=== PATIENT | male | born 1985 | race Caucasian/White ===

== ENCOUNTER 2017-09-02 01:41 | Inpatient (IN) ==
[2017-09-02] MEDS ORDERED: ONDANSETRON 4 MG/2 ML INJECTION IVP ONE (01:55)
[2017-09-02] MEDS ORDERED: SALINE FLUSH 10ml SYRINGE IVF PRN (01:55)
[2017-09-02] MEDS ORDERED: NS 1,000 ML IV ONE (01:55)
--- NOTE | 2017-09-02 01:59 | Emergency Department Report ---
Overdose HPI - General Stated Complaint: OD Time Seen by Provider: 09/02/17 01:54 [employer]HICLE REPAIRER Source: patient, EMS, RN notes reviewed, old records reviewed Mode of arrival: EMS Limitations: no limitations - History of Present Illness HPI Narrative: 31yo man presented to the ER by EMS following an OD. Pt is well known to the local EMS crews - he has a 17yr h/o heroin abuse; on his last EMS run, pt required 4mg narcan to resuscitate. In the interim, pt had detox'ed from his heroin. Recently, he found out that he is facing a lengthy detention sentence related to his prior drug abuse. So, pt began drinking, then decided, if he was going to [facility]dc anyway, he would start using heroin again. Stated 0.25g of heroin use tonight. OD was unintentional. complaint: accidental overdose Onset (ago): hour(s) Intent: wanted to escape How Overdose Was Discovered: other (Found not breathing) Context: Intentional Overdose: legal problems, drug/ETOH problems Context: Accidental Overdose: wanted to get high Associated symptoms: depression Treatments Prior to Arrival: oxygen, narcan - Related Data Home Medications Medication Instructions Recorded Confirmed BuPROPion XL [Wellbutrin Xl] 300 mg PO DAILY 09/02/17 09/02/17 Mirtazapine [Remeron] 15 mg PO HS 09/02/17 09/02/17 Trazodone [Desyrel] 200 mg PO PRN 09/02/17 Allergies Allergy/AdvReac Type Severity Reaction Status Date / Time No Known Allergies Allergy Verified 09/02/17 02:42 Review of Systems All systems: reviewed and negative except as stated Cardiovascular: Reports: as per HPI. Denies: chest pain, palpitations, dyspnea on exertion, orthopnea, edema, syncope, paroxysmal nocturnal dyspnea Respiratory: Reports: as per HPI. Denies: cough, dyspnea, wheezes, hemoptysis, stridor Neurological: Reports: as per HPI, confusion. Denies: headache, weakness, numbness, paresthesias, abnormal gait, vertigo [facility] Patient Stated Medical History Other Infectious Yes: positive for hep c Depression Yes Substance Use Disorder Yes: was clean since 06/13/2017 Clinic Medical History Heroin overdose (Acute Medical) SIRS (systemic inflammatory response syndrome) (Acute Medical) Medical History Updates: Heroin abuse. Hep C. Depression Physical Exam - Limitations Limitations: no limitations - General General appearance: in no apparent distress, appears intoxicated - Normal Exams: Head:: Normocephalic without trauma Eyes:: Pupils are PERRLA w/ EOMI, No scleral icterus, irritation, or foreign bodies noted ENMT:: No facial trauma, nasal exudates, pharyngeal erythema, or exudates are noted Neck:: Full range of motion, without adenopathy Lymphatic:: No lymphadenopathy Musculoskeletal:: No tenderness, or deformity noted Integumentary:: No rashes, hives, or bruising noted Neurological:: Patient is alert, and oriented Psychiatric:: Patient exhibits, appropriate attention - Chest Chest inspection: Present: normal inspection, symmetric chest wall rise. Absent : tenderness, rash - Respiratory Respiratory exam: Present: crackles (In b/l lower lobes). Absent: normal lung sounds bilaterally, respiratory distress, wheezes, prolonged expiratory phase - Cardiovascular Cardiovascular exam: Present: normal rhythm, tachycardia, normal heart sounds, + S1, +S2. Absent: regular rate, systolic murmur, diastolic murmur, +S3, +S4 Course - Consultations Consultation #1: Hospitalist: Will admit for further eval/stabliziation/treatment. Vital Signs Temperature 98.6 F 09/02/17 01:41 CDT Pulse Rate 114 H 09/02/17 01:41 CDT Respiratory Rate 16 09/02/17 01:41 CDT Blood Pressure 130/81 09/02/17 01:41 CDT Pulse Oximetry 88 L 09/02/17 01:41 CDT Temperature 97.5 F 09/02/17 04:45 Pulse Rate 99 09/02/17 09:45 Respiratory Rate 20 09/02/17 09:45 Blood Pressure 105/50 09/02/17 09:12 Pulse Oximetry 94 09/02/17 09:45 Overdose - MDM Narrative Medical decision making narrative: Markedly intoxicated pt, requiring repeat dose of narcan to maintain SaO2. Recovering heroin addict who decided to begin injecting again after being informed that he would be incarcerated. Contacted hospitalist for admission. - Differential Diagnosis Likely: cocaine intoxication, suicide attempt by multiple drug overdose, poisoning by opiate or related narcotic, drug overdose, accidental drug ingestion - Medical Records Attestation: I reviewed the patient's medical records. - Lab Data Attestation: I reviewed the patient's lab results. Result diagrams: 09/02/17 06:35 09/02/17 06:35 Lab Results 09/02/17 09/02/17 Range/Units 02:53 02:53 WBC 15.3 H (4.5-11.0) T/MM3 RBC 4.97 (4.50-5.90) M/MM3 Hgb 14.6 (13.5-17.5) GM/DL Hct 43.7 (41-53) % MCV 87.9 (80-100) UM3 MCH 29.4 (26-34) UUG MCHC 33.4 (31-37) GM/DL RDW Std Deviation 39.4 (36.9-50.2) FL Plt Count 270 (130-400) T/MM3 MPV 9.8 (9.4-12.4) UM3 Immature Gran % (Auto) Not performed Neut % (Auto) Not performed Lymph % (Auto) Not performed [place] % (Auto) Not performed Eos % (Auto) Not performed Baso % (Auto) Not performed Neut # (Auto) Not performed Lymph # (Auto) Not performed [place] # (Auto) Not performed Eos # (Auto) Not performed Baso # (Auto) Not performed Abs Immat Gran (auto) Not performed Neutrophils % (Manual) 85.0 H (33-66) % Band Neutrophils % 3.0 (0-6) % Lymphocytes % (Manual) 5.0 L (23-45) % Monocytes % (Manual) 6.0 (0-9.0) % Basophils % (Manual) 1.0 (0-2) % Neutrophils # (Manual) 13.0 H (1.8-7.7) T/MM3 Band Neutrophils # 0.5 T/MM3 Lymphocytes # (Manual) 0.8 L (1-4.8) T/MM3 Monocytes # (Manual) 0.9 H (0-0.8) T/MM3 Basophils # (Manual) 0.2 (0-0.2) T/MM3 RBC Morph Comment Normal Turbidity < 20 (0-20) Sodium 142 (134-144) MEQ/L Potassium 4.1 (3.6-5) MEQ/L Chloride 103 (98-107) MEQ/L Carbon Dioxide 30 (22-30) MEQ/L Anion Gap 9 (5-15) MEQ/L BUN 16.0 (9-20) MG/DL Creatinine 1.1 (0.8-1.5) MG/DL GFR Calculation 79 BUN/Creatinine Ratio 15 (6-26) RATIO Glucose 165 H (75-110) MG/DL Calculated Osmolality 278 (261-280) MOSM/KG Calcium 8.7 (8.4-10.2) MG/DL Total Bilirubin 0.20 (0.20-1.30) MG/DL Icterus Index < 2 (0-7) AST 29 (17-59) U/L ALT 39 (21-72) U/L Alkaline Phosphatase 90 (38-126) U/L Creatine Kinase 98 (55-170) U/L Troponin I < 0.012 (0-0.12) ng/ml Total Protein 8.1 (6.3-8.2) G/DL Albumin 4.6 (3.5-5.0) G/DL Globulin 3.5 (2.4-3.6) G/DL Albumin/Globulin Ratio 1.3 (1.1-2.2) RATIO Specimen Hemolysis < 15 (0-25) Salicylates < 1.0 L (2-20) MG/DL Acetaminophen < 10 L (10-30) UG/ML Alcohol, Quantitative <10 (<10) MG/DL - Radiology Data Attestation: I reviewed the patient's radiology results. CXR: No acute CT pathology. - EKG Data EKG #1 EKG attestation: Yes: I reviewed and interpreted this EKG. EKG shows normal: sinus rhythm, axis, intervals, QRS complexes, ST-T waves Rate: tachycardia Disposition Clinical Impression: Drug overdose Qualifiers: Encounter type: initial encounter Injury intent: accidental or unintentional Qualified Code(s): T50.901A - Poisoning by unspecified drugs, medicaments and biological substances, accidental (unintentional), initial encounter Heroin overdose Qualifiers: Encounter type: initial encounter Injury intent: accidental or unintentional Qualified Code(s): T40.1X1A - Poisoning by heroin, accidental (unintentional), initial encounter Disposition: 02 To [facility] Acute Care Condition: Stable - Seen By: physician
[2017-09-02] MEDS ORDERED: NALOXONE 0.4 MG/ML INJECTION IVP ONE (03:13)
[2017-09-02] MEDS ORDERED: HEPARIN 5,000unit/ml 1ml INJECTION SUB-Q SCH (04:39)
[2017-09-02] MEDS ORDERED: PANTOPRAZOLE 40 MG INJECTION IVP ONE (04:39)
[2017-09-02] MEDS ORDERED: NALOXONE 0.4 MG/ML INJECTION IVP PRN (04:39)
[2017-09-02] MEDS ORDERED: ONDANSETRON 4 MG/2 ML INJECTION IVP PRN (04:39)
[2017-09-02] MEDS ORDERED: NS 1,000 ML IV SCH (04:39)
[2017-09-02 04:59] VITALS: BMI 25.0
--- NOTE | 2017-09-02 04:59 | History & Physical Report ---
<Bryan Gutierres Demar - Last Filed: 09/02/17 04:55> History of Present Illness Date: 09/02/17 Chief complaint: altered mental status HPI: This is a 31 y/o male who has a history of drug and alcohol abuse. He had actually been sober for a period of time. The patient is facing legal problems and from what the ED indicates he is soon to be incarcerated for a period of over ?10 years. He decided tonight to step off the wagon and injected an unknown amount of Heroin. The patient was found probably by fiance who activated EMS and they injected narcan and transported to the ED. In the ED he required an additional 0.4mg of narcan and at this time is to be admitted into the ICU for further evaluation of his respiratory status. Review of Systems Review of systems: no headache, no change in vision, no fever chills or sweats, no sore throat or troubles swallowing, no neck pain, no chest pain, no shortness of breath, no cough , no congestion, no abdomen pain, no nausea or vomiting, no MS complaints , no focal neurological complaints. 12 point ROS otherwise negative except for outlined above. [facility] Medical History Updates: Heroin abuse. Hep C. Depression - Social History Smoking status: Current every day smoker Substance use type: heroin, IV drugs Substance last used: just [employer] Alcohol intake: current Last drink: unknown Household members: significant other Medications Allergies Allergy/AdvReac Type Severity Reaction Status Date / Time No Known Allergies Allergy Verified 09/02/17 02:42 Exam Vital Signs: Temperature 98.6 F 09/02/17 01:41 CDT Pulse Rate 100 09/02/17 04:15 Respiratory Rate 15 09/02/17 04:15 Blood Pressure 108/55 09/02/17 04:15 Pulse Oximetry 91 09/02/17 04:15 Telemetry Rhythm: Sinus Rhythm - Constitutional Present: mild distress, well nourished, well developed, average body habitus, disheveled, cooperative - Routine HEENT Exam Head: Present: normocephalic, atraumatic Eye: Present: EOMI, scleral injection, conjunctivae pink ENT: Present: mucous membranes dry - Routine Neck Exam Present: supple, full ROM - Routine Respiratory Exam Present: CTA bilaterally. Absent: wheezes, crackles - Routine Cardiovascular Exam Present: RRR, no murmur. Absent: S3 - Routine Abdominal Exam Present: normoactive bowel sounds, non distended, non tender - Routine Extremities Exam Present: no edema, non tender, full ROM - Routine Back/Spine/Pelvis Exam Back/Spine: Present: full ROM - Routine Skin Exam Present: intact - Routine Neurological Exam Present: oriented X3, CN II-XII intact, altered mental status. Absent: motor deficit - Routine Psychiatric Exam Comments: flat affect, poor eye contact Results - Labs CBC & Chem 7: 09/02/17 02:53 09/02/17 02:53 Labs: reviewed labs, will discuss meaningful labs in assessment and plan - ABG Interpretation Attestation: I reviewed and interpreted this ABG. Assessment and Plan (1) Heroin overdose Current visit: Yes Status: Acute (2) SIRS (systemic inflammatory response syndrome) Current visit: Yes Status: Acute Assessment and Plan: 1. Heroin overdose acute POA: at this time will admit to ICU as he has required 2 doses of narcan so far. no gtt indicated yet. IVF, UDS negative otherwise. He is aware of the consequences. He had been sober for a period of time 2. SIRS acute POA: leukocytosis and tachycardia. IvF and repeat markers in the am 3. chronic alcohol abuse not POA: BAL is negative. hx of abuse. had been sober and drank again recently, to be aware of 4. social: patient with significant social issues. apparently legal. he is soon to be incarcerated. Did not discuss with patient tonight but to be aware of. 5. hyperglycemia acute POA: stress reaction. repeat chemistry in am and if continue elevated consider reassessment 6. DVT ppx; SCD, heparin 7. gastric ppx; PPI DVT Prophylaxis: SCD's, SQ Heparin GI Prophylaxis: Protonix Resuscitation Status: Full Code - Time spent with patient Time with patient PN: 50 minutes Hospital Course Summary Disclaimer: The visit summary below is not to be considered part of the above Progress Note. <Sheldon Pro - Last Filed: 09/02/17 13:44> History of Present Illness Date: 09/02/17 [facility] Patient Stated Medical History Other Infectious Yes: positive for hep c Depression Yes Substance Use Disorder Yes: was clean since 06/13/2017 Clinic Medical History Heroin overdose (Acute Medical) SIRS (systemic inflammatory response syndrome) (Acute Medical) Exam Vital Signs: Temperature 97.5 F 09/02/17 04:45 Pulse Rate 99 09/02/17 09:45 Respiratory Rate 20 09/02/17 09:45 Blood Pressure 105/50 09/02/17 09:12 Pulse Oximetry 94 09/02/17 09:45 Height/Weight/BMI: Height 1.8 m Weight 81.6 kg Body Mass Index 25.0 Results - Labs CBC & Chem 7: 09/02/17 06:35 09/02/17 06:35 Assessment and Plan (1) Heroin overdose Current visit: Yes Status: Acute (2) SIRS (systemic inflammatory response syndrome) Current visit: Yes Status: Acute Assessment and Plan: Have independently interviewed and examined pt. Chart reviewed. Case discussed with CM, CCU nursing, & Fiona from [facility]. Reviewed above chart and concur. CC: Overdose HPI: 31 y/o male with longstanding narcotic dependency and abuse [place] [facility] [place] secondary to overdose. Has been trying to turn his life around. Moved from [place] to [place] to get ways from the bad crowd he was with. Started a job 1 week ago. Continues with [employer] treatments. Recently found he is facing 10 years in care home on drug charges-had relapse and had a few drinks which led to Heroin use. Has not used Heroin in about 4 months. Use the amount he use to take and overdosed. Did not intend to hurt himself. Not wanting to end his life. Admitted to [facility] [place] further evaluation and treatment. PMHx: Heroin abuse, ETOH abuse, Hep C, Depression, Tobacco dependency ALL: NKDA. Meds: none SHx: has GF. Smokes cigarettes. Recently employed. FHx: Brother suddenly at age 23 - possible Sleep apnea vs aneurysm (did have ETOH and morphine in system, but 'not enough to kill him.') ROS: Notes nausea. Appetite varies. Breathing stable. No chest pain. Remainder of 10 point ROS negative Exam GEN: WDWNWM awake alert HEENT: NC/AT PERRLA EOMI MMM Neck: supple, midline, no tracheal deviation Lung: clear bilaterally. No crackles, wheezes or distress CV: tachy, regular AB: soft nt/nd EXT: no C/C/E. Skin: warm and dry Psych: awake alert appropriate. Converses well Neurological: CN II-XII intact. No focal deficits. MS: normal muscle strength and tone Lab: reviewed Assessment Heroin overdose Leukocytosis Tachycardia Hep C Social stressors Hyperglycemia Plan Admission to CCU at [facility] for close monitoring post Heroin overdose. Narcan as needed. IVF for support. NPO until awake and alert. SCD for DVT prevention. Safe supportive environment. Consult with [facility] for evaluation when cognitively clear. [facility] time of discharge from [facility]. Hospital Course Summary Disclaimer: The visit summary below is not to be considered part of the above Progress Note. Hospital Course: 09/02/17 Assessment Heroin overdose Leukocytosis Tachycardia Hep C Social stressors Hyperglycemia Plan Admission to CCU at [facility] [place] close monitoring post Heroin overdose. Narcan as needed. IVF for support. NPO until awake and alert. SCD for DVT prevention. Safe supportive environment. Consult with [facility] for evaluation when cognitively clear. Care to return to [facility] at time of discharge from [facility].
[2017-09-02 06:32] VITALS: TEMP 97.5
--- NOTE | 2017-09-02 08:38 | XRay Report ---
INDICATION: Hypoxia PROCEDURE: CHEST 2-VIEWS UPRIGHT (PA & LAT) Encounter: Initial COMPARISON: None FINDINGS: The lungs are clear without evidence of focal abnormal airspace opacity. There is no pleural effusion or pneumothorax. The heart size, mediastinal contours and pulmonary vascularity are within normal limits. There is no significant skeletal abnormality. IMPRESSION: No acute cardiopulmonary disease. .
[2017-09-02] MEDS ORDERED: NICOTINE 21 MG PATCH TD SCH (09:00)
[2017-09-02 09:58] VITALS: BP 105/50; PULSE 99; RESP 20; O2SAT 94
[2017-09-02] MEDS ORDERED: ACETAMINOPHEN 325 MG TABLET PO ONE (12:12)
--- NOTE | 2017-09-02 13:53 | Discharge Summary ---
Discharge Information Date of admission: 09/02/17 03:36 Anticipated date of discharge: 09/02/17 Attending Physician: Sheldon Pro MD Consults: Inna Borges for state screen - Discharge Diagnosis (1) Heroin overdose Status: Acute (2) SIRS (systemic inflammatory response syndrome) Status: Acute Discharge diagnosis Heroin overdose Associated conditions and complications Leukocytosis Tachycardia Hep C Social stressors Hyperglycemia - Laboratory Labs: Admit Lab 09/02/17 02:53 WBC 15.3 H Hgb 14.6 Hct 43.7 MCV 87.9 MCH 29.4 Plt Count 270 Neutrophils % (Manual) 85.0 H Band Neutrophils % 3.0 Lymphocytes % (Manual) 5.0 L Monocytes % (Manual) 6.0 Basophils % (Manual) 1.0 Admit Lab 09/02/17 02:53 Sodium 142 Potassium 4.1 Chloride 103 Carbon Dioxide 30 Anion Gap 9 BUN 16.0 Creatinine 1.1 GFR Calculation 79 BUN/Creatinine Ratio 15 Glucose 165 H Calculated Osmolality 278 Calcium 8.7 Total Bilirubin 0.20 AST 29 ALT 39 Alkaline Phosphatase 90 Creatine Kinase 98 Troponin I < 0.012 Total Protein 8.1 Albumin 4.6 Globulin 3.5 Albumin/Globulin Ratio 1.3 Admit Lab 09/02/17 09/02/17 02:53 04:21 Salicylates < 1.0 L Urine Opiates Screen Positive Acetaminophen < 10 L Alcohol, Quantitative <10 09/02/17 06:35 09/02/17 06:35 History of Present Illness HPI: This is a 31 y/o male who has a history of drug and alcohol abuse. He had actually been sober for a period of time. The patient is facing legal problems and from what the ED indicates he is soon to be incarcerated for a period of over ?10 years. He decided tonight to step off the wagon and injected an unknown amount of Heroin. The patient was found probably by fiance who activated EMS and they injected narcan and transported to the ED. In the ED he required an additional 0.4mg of narcan and at this time is to be admitted into the ICU for further evaluation of his respiratory status. For complete details for the H&P refer to that document. Objective Vital signs: Temperature 97.5 F 09/02/17 04:45 Pulse Rate 99 09/02/17 09:45 Respiratory Rate 20 09/02/17 09:45 Blood Pressure 105/50 11/05/17 09:12 Pulse Oximetry 94 09/02/17 09:45 Height/Weight/BMI: Height 1.8 m Weight 81.6 kg Body Mass Index 25.0 Hospital Course This is a general summary of the patient's hospital course. For more details refer to the complete medical record. Hospital course: 09/02/17 Assessment Heroin overdose Leukocytosis Tachycardia Hep C Social stressors Hyperglycemia Plan Admission to CCU at [facility] for close monitoring post Heroin overdose. Narcan as needed. IVF for support. NPO until awake and alert. SCD for DVT prevention. Safe supportive environment. Consult with [facility] for evaluation when cognitively clear. [facility] of discharge from [facility] [facility]. [facility] did meet with patient and do not find evidence that he is a treat to himself to others. Recommend patient able to discharge to home and continue outpatient treatments already in place. Medically doing well. Will discharge to home. See orders for details. DVT Prophylaxis: SCD's Discharge Plan - Discharge Disposition Discharge Date: 09/02/17 Disposition: 01 Discharged Home, Self-Care *Condition: Stable *Reason For Visit: heroin overdose - Discharge Packet/Instructions *Diet: regular *Activity: as tolerated *Pain Management/Treatment: Tylenol as needed *Wound Care: N/A Additional Instructions: Continue to follow with [facility] and [facility] as outlined by Fiona Carter *Expected Signs/Symptoms: Improvement of functional status *Notify Physician if: Temp >100.4 *During Business Hours Contact: [facility] *After Business Hours Contact: Call [facility] and have you care provider contacted. *Pending Lab/Results: No Pending Lab - Referrals/Follow Up *Referrals[facility]Follow Up: [facility] [Non-Staff] - (Continue with [facility] for health care. ) - Patient Handouts - Dismissal Complete Discharge Instructions are:: Complete Attestation Narriative - Attestation Attestation Narrative: 09/02/17 13:56 I have independently interviewed and examined patient prior to discharge. See H& P from today for details. Medically stable for discharge to home.
[2017-09-03] MEDS ORDERED: NICOTINE PATCH REMOVAL TD SCH (09:00)
== END 2017-09-02 14:15 | disposition home or self-care (01) | DRG 918 ==
LOC: ED 01:41 → CCU 03:36
PROVIDERS: ADMIT Emergency Medicine; ATTEND Hospitalist

== ENCOUNTER 2017-09-16 08:46 | Inpatient (IN) ==
[2017-09-16] MEDS ORDERED: NS 1,000 ML IV ONE ×3 (08:57→13:20)
[2017-09-16] MEDS ORDERED: ONDANSETRON 4 MG/2 ML INJECTION IVP ONE (08:57)
[2017-09-16] MEDS ORDERED: NALOXONE 0.4 MG/ML INJECTION IVP ONE (08:57)
--- NOTE | 2017-09-16 09:15 | Emergency Department Report ---
Overdose HPI - General Stated Complaint: right arm not working, says cant hear Time Seen by Provider: 09/16/17 08:56 Source: patient, family Mode of arrival: ambulatory Limitations: altered mental status - History of Present Illness HPI Narrative: 31yo man presented to the ER for evaluation of right arm weakness. Pts staci brought him to the ER after getting off work and driving home from her 12hr shift in [place]. When she spoke with him at 2130 last night, he was fine. When she came home from work, he was altered, c/o right arm pain/weakness, and right arm coldness. Pt has a long h/o heroin abuse. When asked about it directly, pt admits to having shot up last night. complaint: accidental overdose Onset (ago): hour(s) Intent: wanted to escape How Overdose Was Discovered: other (Fiance) Context: Intentional Overdose: drug/ETOH problems Context: Accidental Overdose: wanted to get high Associated symptoms: other (Still altered) Treatments Prior to Arrival: none - Related Data Home Medications Medication Instructions Recorded Confirmed BuPROPion XL [Wellbutrin Xl] 300 mg PO DAILY 09/02/17 09/16/17 Mirtazapine [Remeron] 15 mg PO HS 09/02/17 09/16/17 Trazodone [Desyrel] 200 mg PO HS PRN 09/02/17 09/16/17 Allergies Allergy/AdvReac Type Severity Reaction Status Date / Time No Known Allergies Allergy Verified 09/16/17 09:13 Review of Systems All systems: reviewed and negative except as stated Musculoskeletal: Reports: as per HPI. Denies: back pain, joint swelling, arthralgia, myalgia [facility] Patient Stated Medical History Other Infectious Yes: positive for hep c Depression Yes Substance Use Disorder Yes: [facility] Medical History Heroin overdose (Acute Medical) SIRS (systemic inflammatory response syndrome) (Acute Medical) Drug overdose (Acute Medical) Aspiration pneumonia (Acute Medical) Sepsis (Acute Medical) Medical History Updates: Heroin abuse. Hep C. Depression - Social History Smoking status: Current every day smoker Physical Exam - Limitations Limitations: altered mental status - General General appearance: lethargic - Normal Exams: Head:: Normocephalic without trauma ENMT:: No facial trauma, nasal exudates, pharyngeal erythema, or exudates are noted Neck:: Full range of motion, without adenopathy Lymphatic:: No lymphadenopathy - Eye Eye exam: Present: PERRL, EOMI, miosis. Absent: normal appearance, scleral icterus, nystagmus - Chest Chest inspection: Present: normal inspection, symmetric chest wall rise. Absent : tenderness, rash - Respiratory Respiratory exam: Present: wheezes, crackles. Absent: normal lung sounds bilaterally, respiratory distress, stridor, prolonged expiratory phase - Cardiovascular Cardiovascular exam: Present: regular rate, normal rhythm, normal heart sounds, +S1, +S2. Absent: systolic murmur, diastolic murmur, +S3, +S4 - Abdominal Exam Abdominal exam: Present: soft, normal bowel sounds. Absent: distention, tenderness, guarding, rebound, rigidity, psoas sign, obturator sign, heel tap sign, Burgess's sign, Rovsing's sign, tenderness at McBurney's Point, hernia - Extremities Exam Extremities exam: Present: full ROM, normal capillary refill. Absent: normal inspection, tenderness, pedal edema - Expanded Upper Extremity Exam bilateral Forearm/Wrist exam: Present: full ROM, erythema (Over left forearm; cellulitis/ edema surrounding injection site). Absent: normal inspection, tenderness, swelling, abrasion, laceration, ecchymosis, deformity, crepitus, dislocation, tenderness over anatomical snuff box, pain with axial thumb loading Vascular exam: Normal: capillary refill (Cold extremities b/l) Course - Consultations Consultation #1: Hospitalist: Time: 11:14 Vital Signs Temperature 95.7 F L 09/16/17 08:50 Pulse Rate 107 H 09/16/17 08:50 Respiratory Rate 20 09/16/17 08:50 Blood Pressure 102/61 09/16/17 08:50 Pulse Oximetry 83 L 09/16/17 08:50 Temperature 95.7 F L 09/16/17 08:50 Pulse Rate 104 H 09/16/17 12:19 Respiratory Rate 21 09/16/17 12:19 Blood Pressure 101/59 09/16/17 12:19 Pulse Oximetry 92 09/16/17 12:19 Overdose - MDM Narrative Medical decision making narrative: 31yo man with recurrent, accidental (presumably) heroin overdose. Pt has aspirated and has cellulitis and sepsis. Blood cultures pending. Rocephin and levaquin given in the ER. Hospitalist has accepted pt for txfr to the CCU. Will need social work coordination for drug rehab on discharge. Finila voiced understanding of dx, prognosis, tx, and f/u need. - Differential Diagnosis Likely: cocaine intoxication, poisoning by opiate or related narcotic, drug overdose, accidental drug ingestion - Medical Records Attestation: I reviewed the patient's medical records. - Lab Data Attestation: I reviewed the patient's lab results. Result diagrams: 09/16/17 09:23 09/16/17 09:23 Lab Results 09/16/17 09/16/17 09/16/17 Range/Units 09:23 09: 09:23 WBC 8.0 (4.5-11.0) T/MM3 RBC 5.99 H (4.50-5.90) M/MM3 Hgb 17.8 H (13.5-17.5) GM/DL Hct 51.9 (41-53) % MCV 86.6 (80-100) UM3 MCH 29.7 (26-34) UUG MCHC 34.3 (31-37) GM/DL RDW Std Deviation 40.5 (36.9-50.2) FL Plt Count 285 (130-400) T/MM3 MPV 10.0 (9.4-12.4) UM3 Immature Gran % (Auto) 0.4 (0.0-0.5) % Neut % (Auto) 78.7 H (33-66) % Lymph % (Auto) 9.7 L (23-45) % [place] % (Auto) 11.1 H (0-9.0) % Eos % (Auto) 0.0 (0-4) % Baso % (Auto) 0.1 (0-2) % Neut # (Auto) 6.3 (1.8-7.7) T/MM3 Lymph # (Auto) 0.8 L (1-4.8) T/MM3 [place] # (Auto) 0.9 H (0-0.8) T/MM3 Eos # (Auto) 0.0 (0-0.5) T/MM3 Baso # (Auto) 0.0 (0-0.2) T/MM3 Abs Immat Gran (auto) 0.03 (0.00-0.03) T/MM3 Turbidity < 20 (0-20) Sodium 145 H (134-144) MEQ/L Potassium 5.4 H (3.6-5) MEQ/L Chloride 105 (98-107) MEQ/L Carbon Dioxide 20 L (22-30) MEQ/L Anion Gap 20 H (5-15) MEQ/L BUN 27.0 H (9-20) MG/DL Creatinine 1.7 H (0.8-1.5) MG/DL GFR Calculation 48 BUN/Creatinine Ratio 16 (6-26) RATIO Glucose 139 H (75-110) MG/DL Calculated Osmolality 286 H (261-280) MOSM/KG Calcium 10.2 (8.4-10.2) MG/DL Total Bilirubin 0.50 (0.20-1.30) MG/DL Icterus Index < 2 (0-7) AST 331 H (17-59) U/L ALT 99 H (21-72) U/L Alkaline Phosphatase 117 (38-126) U/L Total Protein 7.5 (6.3-8.2) G/DL Albumin 4.2 (3.5-5.0) G/DL Globulin 3.3 (2.4-3.6) G/DL Albumin/Globulin Ratio 1.3 (1.1-2.2) RATIO Lipase 65 (23-300) U/L Plasma Lactate 5.5 H* (0.6-2.2) MMOL/L Procalcitonin 14.24 H* NG/ML Specimen Hemolysis 68 H (0-25) Ur Collection Type Urine Color (YELLOW) Urine Clarity Urine pH (5.0-8.0) Ur Specific [place] (1.015-1.025) Urine Protein (NEGATIVE) Urine Glucose (UA) (NEGATIVE) Urine Ketones (NEGATIVE) Urine Occult Blood (NEGATIVE) Urine Nitrate (NEGATIVE) Urine Bilirubin (NEGATIVE) Urine Urobilinogen (NORMAL) EU/DL Ur Leukocyte Esterase (NEGATIVE) Urine RBC (0-3) /HPF Urine WBC (0-5) /HPF Ur Squamous Epith Cells Amorphous Sediment Urine Bacteria (NEGATIVE) Granular Casts Ur Culture Indicated? Salicylates < 1.0 L (2-20) MG/DL Urine Opiates Screen ng/mL Ur Oxycodone Screen ng/mL Urine Methadone Screen ng/mL Ur Propoxyphene Screen ng/mL Acetaminophen < 10 L (10-30) UG/ML Ur Barbiturates Screen ng/mL U Tricyclic Antidepress ng/mL Ur Phencyclidine Scrn ng/mL Ur Amphetamines Screen ng/mL U Methamphetamines Scrn ng/mL U Benzodiazepines Scrn ng/mL Urine Cocaine Screen ng/mL U Cannabinoids Screen ng/mL Ur Drug Screen Confirm Alcohol, Quantitative <10 (<10) MG/DL 09/16/17 09/16/17 09/16/17 Range/Units 09:53 09:53 09:53 WBC (4.5-11.0) T/MM3 RBC (4.50-5.90) M/MM3 Hgb (13.5-17.5) GM/DL Hct (41-53) % MCV (80-100) UM3 MCH (26-34) UUG MCHC (31-37) GM/DL RDW Std Deviation (36.9-50.2) FL Plt Count (130-400) T/MM3 MPV (9.4-12.4) UM3 Immature Gran % (Auto) (0.0-0.5) % Neut % (Auto) (33-66) % Lymph % (Auto) (23-45) % [place] % (Auto) (0-9.0) % Eos % (Auto) (0-4) % Baso % (Auto) (0-2) % Neut # (Auto) (1.8-7.7) T/MM3 Lymph # (Auto) (1-4.8) T/MM3 [place] # (Auto) (0-0.8) T/MM3 Eos # (Auto) (0-0.5) T/MM3 Baso # (Auto) (0-0.2) T/MM3 Abs Immat Gran (auto) (0.00-0.03) T/MM3 Turbidity (0-20) Sodium (134-144) MEQ/L Potassium (3.6-5) MEQ/L Chloride (98-107) MEQ/L Carbon Dioxide (22-30) MEQ/L Anion Gap (5-15) MEQ/L BUN (9-20) MG/DL Creatinine (0.8-1.5) MG/DL GFR Calculation BUN/Creatinine Ratio (6-26) RATIO Glucose (75-110) MG/DL Calculated Osmolality (261-280) MOSM/KG Calcium (8.4-10.2) MG/DL Total Bilirubin (0.20-1.30) MG/DL Icterus Index (0-7) AST (17-59) U/L ALT (21-72) U/L Alkaline Phosphatase (38-126) U/L Total Protein (6.3-8.2) G/DL Albumin (3.5-5.0) G/DL Globulin (2.4-3.6) G/DL Albumin/Globulin Ratio (1.1-2.2) RATIO Lipase (23-300) U/L Plasma Lactate (0.6-2.2) MMOL/L Procalcitonin NG/ML Specimen Hemolysis (0-25) Ur Collection Type Urine, clean catch Urine Color Natalie (YELLOW) Urine Clarity Cloudy Urine pH 5.0 (5.0-8.0) Ur Specific [place] >=1.030 H (1.015-1.025) Urine Protein 1+ A (NEGATIVE) Urine Glucose (UA) 2+ A (NEGATIVE) Urine Ketones Negative (NEGATIVE) Urine Occult Blood 3+ A (NEGATIVE) Urine Nitrate Negative (NEGATIVE) Urine Bilirubin Negative (NEGATIVE) Urine Urobilinogen 0.2 (NORMAL) EU/DL Ur Leukocyte Esterase Negative (NEGATIVE) Urine RBC 1-3 (0-3) /HPF Urine WBC 1-3 (0-5) /HPF Ur Squamous Epith Cells 0-5 Amorphous Sediment Many Urine Bacteria None seen (NEGATIVE) Granular Casts 3-5 Ur Culture Indicated? Cult not indicated Salicylates (2-20) MG/DL Urine Opiates Screen Positive ng/mL Ur Oxycodone Screen Negative ng/mL Urine Methadone Screen Negative ng/mL Ur Propoxyphene Screen Negative ng/mL Acetaminophen (10-30) UG/ML Ur Barbiturates Screen Negative ng/mL U Tricyclic Antidepress Negative ng/mL Ur Phencyclidine Scrn Negative ng/mL Ur Amphetamines Screen Negative ng/mL U Methamphetamines Scrn Negative ng/mL U Benzodiazepines Scrn Negative ng/mL Urine Cocaine Screen Negative ng/mL U Cannabinoids Screen Negative ng/mL Ur Drug Screen Confirm Sent out Alcohol, Quantitative (<10) MG/DL - Radiology Data Attestation: I reviewed the patient's radiology results. CXR: Findings: Severe consolidation of almost the entire right lung. Left lung is clear. No pleural effusion or pneumothorax. Heart size and mediastinal contours are normal. Impression: Severe right lung consolidation could represent massive aspiration or pneumonia. B/l duplex US: IMPRESSION: Normal bilateral upper extremity duplex arterial ultrasound. - EKG Data EKG #1 EKG attestation: Yes: I reviewed and interpreted this EKG. EKG shows normal: sinus rhythm, axis, QRS complexes Rate: tachycardia Interpretation: nonspecific ST-T wave changes Disposition Clinical Impression: Heroin overdose Qualifiers: Encounter type: initial encounter Injury intent: accidental or unintentional Qualified Code(s): T40.1X1A - Poisoning by heroin, accidental (unintentional), initial encounter Aspiration pneumonia Qualifiers: Aspiration pneumonia type: due to vomit Laterality: right Lung location: unspecified part of lung Qualified Code(s): J69.0 - Pneumonitis due to inhalation of food and vomit Sepsis Qualifiers: Sepsis type: sepsis due to unspecified organism Qualified Code(s): A41.9 - Sepsis, unspecified organism Disposition: Discharged Home, Self-Care Condition: Stable Time of Disposition: 11:32 - Seen By: physician
[2017-09-16] MEDS ORDERED: NALOXONE 0.4 MG/ML INJECTION IM ONE (09:17)
[2017-09-16] MEDS ORDERED: ONDANSETRON ODT 4 MG TABLET PO ONE (09:38)
[2017-09-16] MEDS ORDERED: CEFTRIAXONE 1 G INJECTION IM ONE (10:07)
[2017-09-16] MEDS ORDERED: LEVOFLOXACIN PB 750 MG/150 ML BAG IV SCH (10:15)
--- NOTE | 2017-09-16 11:00 | XRay Report ---
Indication: OD PROCEDURE: XR chest 1V: Encounter: Initial Comparison: September 02, 2017 Findings: Severe consolidation of almost the entire right lung. Left lung is clear. No pleural effusion or pneumothorax. Heart size and mediastinal contours are normal. Impression: Severe right lung consolidation could represent massive aspiration or pneumonia. .
[2017-09-16] MEDS: SALINE FLUSH 10ml SYRINGE IVF PRN (11:03)
[2017-09-16 12:47] VITALS: BMI 25.6
[2017-09-16] MEDS: NS 1,000 ML IV SCH ×2 (13:49→20:24)
--- NOTE | 2017-09-16 15:11 | History & Physical Report ---
History of Present Illness Date: 09/16/17 HPI: is a 31 y.o. male with PMH of substance abuse, Hep C? who presented after being found on the ground and minimally responsive by his girlfriend. She reports he was doing well last night but this morning he was lying on the ground and disoriented. Pt had a similar episode a couple of weeks ago which was related to heroin overdose. Pt is currently alert and oriented and reports he took heroin again. Denies use of any other substance. Pt reports he injected it through his left arm. Denies any n/v/d, f/c, cp or sob. Reports he has limited mobility in his right arm but has full feeling. He thinks he may have fell on it. Review of Systems All systems PM: 10-point ROS was reviewed, no additional remarkable complaints except PFSH Patient Stated Medical History Other Infectious Yes: positive for hep c Depression Yes Substance Use Disorder Yes: [facility] Medical History Heroin overdose (Acute Medical) SIRS (systemic inflammatory response syndrome) (Acute Medical) Drug overdose (Acute Medical) Aspiration pneumonia (Acute Medical) Sepsis (Acute Medical) Medical History Updates: Heroin abuse. Hep C. Depression - Social History Smoking status: Current every day smoker Medications Home Medications Medication Instructions Recorded Confirmed Type BuPROPion XL [Wellbutrin Xl] 300 mg PO DAILY 09/02/17 09/16/17 History Mirtazapine [Remeron] 15 mg PO HS 09/02/17 09/16/17 History Trazodone [Desyrel] 200 mg PO HS PRN 09/02/17 09/16/17 History Allergies Allergy/AdvReac Type Severity Reaction Status Date / Time No Known Allergies Allergy Verified 09/16/17 09:13 Exam Vital Signs: Temperature 98.5 F 09/16/17 12:45 Pulse Rate 101 H 09/16/17 13:38 Respiratory Rate 20 09/16/17 13:38 Blood Pressure 100/64 09/16/17 13:30 Pulse Oximetry 96 09/16/17 13:38 Height/Weight/BMI: Height 5 ft 10 in Weight 81 kg Body Mass Index 25.6 - Constitutional Present: no acute distress, disheveled, cooperative, somnolent - Routine HEENT Exam Head: Present: normocephalic, atraumatic Eye: Present: EOMI ENT: Present: mucous membranes dry - Routine Neck Exam Present: supple, full ROM - Routine Respiratory Exam Present: CTA bilaterally. Absent: dyspnea - Routine Cardiovascular Exam Present: RRR, no murmur - Routine Abdominal Exam Present: soft, non tender. Absent: distended, rebound, guarding - Routine Extremities Exam Present: no edema. Absent: cyanosis, clubbing - Routine Skin Exam Present: intact, dry. Absent: cyanosis Comments: slight erythema around injection site on left forearm Results - Labs CBC & Chem 7: 09/16/17 09:23 09/16/17 16:24 Assessment and Plan Assessment and Plan: Severe Sepsis -PNA vs. Cellulitis at injection site -LA 5.5 at presentation, will recheck, procal 14 -Hypotensive but responding to fluids -Will do broad coverage-->Vanc + Zosyn -IV fluids, blood cx's, sputum cx's Mild Hypothermia -Likely 2/2 heroin OD -95F on presentation -Will do passive re-warming efforts Aspiration PNA -CXR shows extensive infiltrates on entirety of right lung -Sputum cx's, will do broad abx coverage, O2 as needed Transaminitis -AST:ALT ratio 3:1, EtOH screen negative but possible abuse? -Concern for Rhabdo with AST elevation as well as UA showing blood but not many RBCs, check CPK HAGMA -Likely LA and BAILEY but less likely but possible alcohol ingestion -Order serum osm to calculate osm gap -Treat underlying pathology BAILEY -Infection vs. Pre-renal with dehydration vs. rhabdo -IV fluids, FeNa, Renal US -UA shows some protein/glucose-->possible CKD component, also blood+ but no rbcs -->possible rhabdo Heroin OD -Tylenol/salcylate screen neg, UDS positive for opiates -Will test for HIV/Hep---some report of hep C hx? Right Shoulder limited mobility -mild pain, will order plain films -Consulted ortho -Can move arm and has sensation, just limited mobility when trying to lift arm -Possibly has rotator cuff tear from fall? DVT Ppx -SCD Hospital Course Summary Disclaimer: The visit summary below is not to be considered part of the above Progress Note. Hospital Course: 09/16/17 15:41 Pt came in very sick with Heroin OD and multiple organ dysfunction and severe sepsis. Started broad spectrum abx, aggressive rehydration, work up for infection and other possible etiologies. Will monitor closely.
[2017-09-16] MEDS ORDERED: VANCOMYCIN - PHARMACY CONSULT MC ONE (15:17)
--- NOTE | 2017-09-16 16:49 | Orthopedic Consult Note ---
Orthopedic Consultation HPI - Consultation Info Consult Date: 09/16/17 Attending Physician: Leo Benson MD Consult Reason: joint pain (Right shoulder) - History of Present Illness 31 yo male presented to [facility] after suspected opiate overdose. 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 His girlfriend is reporting much of the history. Was incarecerated from Nov-March 2017 and relapsed upon release. This is his third OD since release. His girlfriend thinks a recent court case has caused his most recent relapse 2 weeks ago and then again last night. She last spoke to him aroung 9:30 pm last evening. She arrived home this morning after she got off work to find him disoriented and lethargic sitting on the couch. Patient notes he used last night and doesn't remember much else. He thinks he fell and laid on the ground for most of the night. I was consulted regarding right shoulder pain. Pain is diffusely located. Denies neck pain. Says he thinks his hand feels a bit numb. Reportedly, his bilateral upper extremities were cool in the ED and US was ordered and found to be negative. Pain is worse with motion. There was concern for dislocation but only an AP film was obtained. It appeared grossly normal, but additional views were ordered to confirm. No fracture or dislocation was identified on the new films. No prior shoulder pain. States he is ambidextrous. Feels better not to move his shoulder. Has been afebrile. Review of Systems - Constitutional Constitutional: Present: daytime sleepiness, lethargy. Absent: anorexia, chills - EENT Eyes: Absent: change in vision, loss of vision Ears, nose, mouth, throat: Present: lightheadedness, decreased hearing. Absent : head injury, apnea - Cardiovascular Cardiovascular: Absent: chest pain, palpitations Vascular: Absent: atrophy, pallor of an extermity, pedal edema - Respiratory Respiratory: Present: cough, chest congestion. Absent: dyspnea, wheezing - Gastrointestinal Gastrointestinal: Absent: abdominal pain, nausea, vomiting - Musculoskeletal Musculoskeletal: Present: joint swelling, limited range of motion, tenderness. Absent: deformity, neck pain - Integumentary/Breasts Integumentary: Present: erythema - Neurological Neurological: Present: numbness, weakness - Psychiatric Psychiatric: Present: anxiety, depression - Endocrine Endocrine: Absent: cold intolerance, excessive sweating [facility] Medical History Heroin overdose (Acute Medical) SIRS (systemic inflammatory response syndrome) (Acute Medical) Drug overdose (Acute Medical) Aspiration pneumonia (Acute Medical) Sepsis (Acute Medical) Medical History Updates: Heroin abuse. Hep C. Depression - Social History Smoking status: Current every day smoker Substance use type: marijuana, IV drugs, methamphetamine Substance last used: hours (ago) Household members: significant other Medications Home Medications Medication Instructions Recorded Confirmed Type BuPROPion XL [Wellbutrin Xl] 300 mg PO DAILY 09/02/17 09/16/17 History Mirtazapine [Remeron] 15 mg PO HS 09/02/17 09/16/17 History Trazodone [Desyrel] 200 mg PO HS PRN 09/02/17 09/16/17 History Allergies Allergy/AdvReac Type Severity Reaction Status Date / Time No Known Allergies Allergy Verified 09/16/17 09:13 Orthopedic Exam Vital signs: Temperature 98.5 F 09/16/17 12:45 Pulse Rate 101 H 09/16/17 13:38 Respiratory Rate 20 09/16/17 13:38 Blood Pressure 100/64 09/16/17 13:30 Pulse Oximetry 96 09/16/17 13:38 - Constitutional General Appearance: Present: disheveled, orientated x3, mild distress, looks stated age, well developed - Respiratory Exam Present: non-labored - Cardiovascular Exam Present: Regular Rate/Rhythm, pedal pulses intact Capillary Refill: < 2-3 Seconds - Abdominal Exam Present: soft. Absent: tenderness, distended - Extremities Exam Present: tenderness (right shoulder). Absent: no edema - Detailed Upper Extremity Exam Comments: Patient was sat up to evaluate symmetry. Mild swelling noted about the right shoulder and sat with a protracted scapula. Upon relaxation, appearance normalized. Small bruise over the anterior shoulder that appears old. Bony prominences of the clavicle and shoulder palpated without evidence of crepitus, deformity, or pain. Tender over deltoid and periscapular musculature. ROM limited because of pain. Upon relaxing, general PROM was normal and without mechanical block or crepitus. Able to fire deltoid, biceps, flex/extend elbow, extend the thumb, ab/adduct fingers, and oppose thumb to the small finger. RC strength grossly normal with mild discomfort with ER and abduction. Radial pulse strong. Normal, brisk capillary refill. Contralateral extremity examined and normal. No neck tenderness, normal motion. - Labs Result Diagrams: 09/16/17 09:23 09/16/17 16:24 Abnormal lab results 09/16/17 Range/Units 16:00 ABG pH 7.310 L (7.350-7.450) ABG Base Excess -4.0 L (-2.0-2.0) MMOL/L - Diagnostic results Shoulder x-ray: image reviewed (No evidence of fracture or dislocation, joint space well maintained.) Impression and Recommendation (1) Acute pain of right shoulder Current visit: Yes Status: Acute Discussed the findings with the patient and his girlfriend. No evidence of acute fracture or dislocation. Likely laid on the right side while he was unconscious. When relaxing for the exam, he felt better. He is relieved to know there is no fracture. Recommend PT/OT for ROM, scapular stabilization, and eventual strengthening. May benefit from some NSAIDs when able medically. Would not recommend sling. Other consideration would be sepsis, but normal WBC , no warmth, and rapid onset after fall/laying on shoulder make unlikely. Ice prn. If pain persists after discharge, could consider outpatient MRI if therapy and time do not improve. Thank you for allowing me to participate in the care of this patient. (2) Aspiration pneumonia Current visit: Yes Qualifiers: Aspiration pneumonia type: due to vomit Laterality: right Lung location: unspecified part of lung Qualified Code(s): J69.0 - Pneumonitis due to inhalation of food and vomit Status: Acute (3) Drug overdose Current visit: No Qualifiers: Encounter type: initial encounter Injury intent: accidental or unintentional Qualified Code(s): T50.901A - Poisoning by unspecified drugs, medicaments and biological substances, accidental (unintentional), initial encounter Status: Acute Hospital Course Summary Disclaimer: The visit summary below is not to be considered part of the above Progress Note. Hospital Course: 09/16/17 15:41 Pt came in very sick with Heroin OD and multiple organ dysfunction and severe sepsis. Started broad spectrum abx, aggressive rehydration, work up for infection and other possible etiologies. Will monitor closely.
[2017-09-16] MEDS: PIPERACILLIN/TAZOBACTAM 3.375 GM in NS 100 ML IV SCH ×2 (17:27→21:30)
[2017-09-16] MEDS: NICOTINE 14 MG PATCH TD PRN (18:17)
[2017-09-16] MEDS: ACETAMINOPHEN 500 MG TABLET PO PRN (21:29)
[2017-09-17] MEDS: CALCIUM CARBONATE Chewable 500mg TABLET PO PRN ×3 (01:01→17:05)
[2017-09-17] MEDS: PIPERACILLIN/TAZOBACTAM 3.375 GM in NS 100 ML IV SCH ×4 (03:00→20:44)
[2017-09-17] MEDS: NS 1,000 ML IV SCH ×3 (03:19→21:42)
[2017-09-17] MEDS: SALINE FLUSH 10ml SYRINGE IVF PRN ×2 (03:46→19:36)
[2017-09-17] MEDS ORDERED: NICOTINE PATCH REMOVAL TD PRN (05:53)
--- NOTE | 2017-09-17 07:37 | Ultrasound Report ---
Indication: BAILEY PROCEDURE: US renal BI: Encounter: Initial Comparison: None Technique: Grayscale and color Doppler sonographic imaging of both kidneys was performed. FINDINGS: Both kidneys are present with normal cortical thickness and echogenicity. No evidence for collecting system dilatation, contour deforming mass, nephrolithiasis, or abnormal perinephric fluid collection. The right kidney measures 11.8 cm in length, and the left kidney measures 12 cm in length. IMPRESSION: Normal renal sonogram. .
[2017-09-17] MEDS: POTASSIUM ACID PHOSPHATE 500 MG TABLET PO SCH ×3 (08:27→18:02)
--- NOTE | 2017-09-17 08:30 | XRay Report ---
EXAM: XR chest 1V 0556 hours COMPARISON: 09/16/2017. 03/17/2017. HISTORY: f/u aspiration pneumonia . FINDINGS: The cardiomediastinal silhouette is within limits of normal. The pulmonary vascularity appears unremarkable. There is persistent alveolar opacification throughout the right lung. Left lung is clear. There is some sparing of the periphery. This is similar to mildly improved compared to the prior exam. There is no evidence for pleural effusion. There is no evidence for a pneumothorax. No osseous abnormalities are identified. IMPRESSION: Persistent, but mildly improved consolidation throughout the right lung. This again may be related to aspiration. LOCATION OF DICTATION: [facility] [place]
--- NOTE | 2017-09-17 08:47 | XRay Report ---
EXAM: XR shoulder RT 1V 1419 hours COMPARISON: None available. HISTORY: possible shoulder dislocation . FINDINGS: Single view of the right shoulder was obtained. There is no evidence for acute fracture, subluxation, or dislocation. No osseous abnormality is identified. There is alveolar opacification throughout the right lung with some sparing of the right lung apex. The right ribs, scapula, clavicle, proximal humerus are intact. IMPRESSION: 1. No evidence for fracture or dislocation. 2. Diffuse alveolar opacification throughout the right lung with some sparing of the right lung apex which may be related to an aspiration pneumonia. LOCATION OF DICTATION: [facility] [place] .
--- NOTE | 2017-09-17 08:49 | XRay Report ---
EXAM: XR shoulder RT 2-3 views 1629 hours. COMPARISON: 05/16/2017 at 1419 hours. HISTORY: Right shoulder pain . FINDINGS: There is no evidence for acute fracture, subluxation, or dislocation. No osseous abnormalities identified. Alveolar opacification is seen throughout the right lung with some sparing of the periphery. IMPRESSION: 1. There is no evidence for acute fracture, subluxation, or dislocation. 2. Alveolar opacification throughout the right lung which may be related to aspiration pneumonia and is similar to mildly improved compared to the prior exam. LOCATION OF DICTATION: [facility] [place] .
--- NOTE | 2017-09-17 10:09 | Progress Note ---
- Date 09/17/17 Subjective: Pt is alert and oriented but feels anxious. Pt denies any cp, n/v/d, f/c, or sob. Pt is hungry and would like to eat. Objective Vital signs: Temperature 98.7 F 09/17/17 09:00 Pulse Rate 115 H 09/17/17 09:00 Respiratory Rate 25 H 09/17/17 09:00 Blood Pressure 138/75 09/17/17 09:00 Pulse Oximetry 95 09/17/17 09:00 Rhythm: Sinus Tachycardia Height/Weight/BMI: Weight 80 kg - Constitutional Present: mild distress - Routine HEENT Exam Head: Present: normocephalic, atraumatic Eye: Present: EOMI - Routine Respiratory Exam Present: CTA bilaterally. Absent: dyspnea - Routine Cardiovascular Exam Present: RRR, no murmur - Routine Abdominal Exam Present: soft, non distended, non tender - Routine Extremities Exam Present: no edema. Absent: cyanosis, clubbing - Routine Musculoskeletal Exam Musculoskeletal: Present: joint swelling (right shoulder) - Routine Skin Exam Present: intact, dry. Absent: cyanosis - Routine Neurological Exam Present: alert, oriented X3 Results - Labs CBC & Chem 7: 09/17/17 04:48 09/17/17 04:48 - ABG Interpretation ABG results: 09/16/17 16:00 ABG pH 7.310 L ABG pCO2 44 ABG pO2 97 ABG HCO3 22 ABG Total CO2 23.6 ABG O2 Saturation 97.0 ABG Base Excess -4.0 L Assessment and Plan Assessment and Plan: Severe Sepsis -PNA vs. Cellulitis at injection site -LA 5.5 at presentation-->1.6 today, procal 14 -Fever overnight -Will do broad coverage-->Vanc + Zosyn D2 -blood cx's, sputum cx's-->NGTD Mild Hypothermia -Resolved -Likely 2/2 heroin OD -95F on presentation -S/p passive re-warming efforts Aspiration PNA -CXR shows extensive infiltrates on entirety of right lung -Sputum cx's, will do broad abx coverage, O2 as needed Transaminitis -AST:ALT ratio 3:1, EtOH screen neg, 2/2 rhabdo Rhabdo -Likely from lying on floor -CPK 42k-->26K -NS 150/hr, will target UOP ~150-200/ hr until cpk <4K HAGMA -Resolved -Likely 2/2 LA and BAILEY BAILEY -Infection vs. Pre-renal with dehydration vs. rhabdo -Cr 1.7-->1.3 -FeNa 0.9, Renal US wnls -UA shows some protein/glucose-->possible CKD component, also blood+ but no rbcs -->rhabdo Heroin OD -Tylenol/salcylate screen neg, UDS positive for opiates -Will test for HIV/Hep---some report of hep C hx? -Trop neg Right Shoulder limited mobility -mild pain, xray neg for fx or dislocation -Consulted ortho-->recommended PT/OT and possible MRI as outpatient if not improved -Can move arm and has sensation throughout, just limited mobility when trying to lift arm -Possibly has rotator cuff tear from fall? DVT Ppx -SCD Hospital Course Summary Disclaimer: The visit summary below is not to be considered part of the above Progress Note. Hospital Course: 09/16/17 15:41 Pt came in very sick with Heroin OD and multiple organ dysfunction and severe sepsis. Started broad spectrum abx, aggressive rehydration, work up for infection and other possible etiologies. Will monitor closely. 09/17/17 10:43 Pt is improving. Lactic acidosis has resolved, bailey has improved, CXR still shows significant infiltrate on right lung but pt not requiring much O2, pt was found to have rhabdo but it is also improving with IV fluids. Pt is starting to go through withdrawals but will try to avoid giving any narcotics to treat, will try to do symptomatic tx for withdrawal with non-opiate options. Will cont. to keep Vanc and Zosyn and await cx results. Ortho evaluated right shoulder and recommended PT/OT.
[2017-09-17] MEDS ORDERED: HydrOXYzine 50 MG TABLET PO ONE (10:45)
--- NOTE | 2017-09-17 12:33 | Pharmacy Consult-Antibiotics ---
Pharmacy Consult-Vancomycin - Laboratory Information WBC 13.2 T/MM3 (4.5-11.0) H D 09/17/17 04:48 BUN 19.0 MG/DL (9-20) 09/17/17 04:48 Creatinine 1.3 MG/DL (0.8-1.5) 09/17/17 04:48 Procalcitonin 14.24 NG/ML H* 09/16/17 09:23 - Consult Information 31 Year Old Male patient admitted for drug overdose and aspiration pneumonia started on Zosyn 3.375 mg IV Q6Hrs and Vancomycin. Pt was given a loading dose of 1500 mg IV last night at 18:00. and 1250 mg IV at 7 am this morning. Will increase the Vancomycin dose to 1500 mg IV q12hrs starting this evening at 17: 00. Patient's CrCl is currently at 89 ml/min. Pharmacy will monitor patient's renal function and vancomycin levels adjusting the dose as needed. Thank you for the Vancomyin consult. Aziza Potts, PharmD
--- NOTE | 2017-09-17 15:49 | Ultrasound Report ---
Indication: Cold limbs; right arm pain PROCEDURE: US arterial duplex UE BI: Encounter: Initial Comparison: None Technique: Grayscale and color Doppler duplex arterial sonographic imaging of the upper extremities was performed Findings: Right upper extremity: Normal multiphasic waveforms and velocities. No evidence of occlusion or significant stenosis. Left upper extremity: Normal multiphasic waveforms and velocities. No evidence of occlusion or significant stenosis. Impression: No hemodynamically significant arterial stenosis or occlusion. There is a preliminary report by virtual radiologic. .
[2017-09-17] MEDS: ACETAMINOPHEN 500 MG TABLET PO PRN (17:05)
[2017-09-17] MEDS: NICOTINE 14 MG PATCH TD PRN (17:06)
[2017-09-17] MEDS ORDERED: SODIUM PHOSPHATE IV ONE (20:00)
[2017-09-17] MEDS ORDERED: NS IV ONE (20:00)
[2017-09-18] MEDS: PIPERACILLIN/TAZOBACTAM 3.375 GM in NS 100 ML IV SCH ×2 (03:25→09:00)
[2017-09-18] MEDS: NS 1,000 ML IV SCH ×4 (05:08→20:48)
[2017-09-18] MEDS: SALINE FLUSH 10ml SYRINGE IVF PRN (05:09)
[2017-09-18] MEDS: MetroNIDAZOLE 500 MG TABLET PO SCH ×3 (06:07→18:14)
[2017-09-18] MEDS: CALCIUM CARBONATE Chewable 500mg TABLET PO PRN ×2 (06:26→14:28)
[2017-09-18] MEDS: LACTOBACILLUS (15B cfu) CAPSULE PO SCH ×3 (09:00→18:14)
--- NOTE | 2017-09-18 12:36 | Progress Note ---
- Date 09/18/17 Subjective: Pt had multiple episodes of diarrhea last night. Denies any cp, n/v, f/c, abd pain. Pt tolerating PO intake well. Objective Vital signs: Temperature 99.1 F 09/18/17 11:00 Pulse Rate 78 09/18/17 11:38 Respiratory Rate 41 H 09/18/17 11:00 Blood Pressure 128/77 09/18/17 11:00 Pulse Oximetry 95 09/18/17 11:00 Rhythm: Sinus Tachycardia Height/Weight/BMI: Weight 78.3 kg - Constitutional Present: no acute distress - Routine HEENT Exam Head: Present: normocephalic, atraumatic Eye: Present: EOMI ENT: Present: mucous membranes moist - Routine Respiratory Exam Present: decreased breath sounds (on right middle and lower lobes) - Routine Cardiovascular Exam Present: RRR, no murmur - Routine Abdominal Exam Present: soft, non distended, non tender - Routine Extremities Exam Present: no edema. Absent: cyanosis, clubbing - Routine Neurological Exam Present: alert, oriented X3 - Routine Psychiatric Exam Present: normal affect Results - Labs CBC & Chem 7: 09/18/17 05:03 09/18/17 05:03 - ABG Interpretation ABG results: 09/16/17 16:00 ABG pH 7.310 L ABG pCO2 44 ABG pO2 97 ABG HCO3 22 ABG Total CO2 23.6 ABG O2 Saturation 97.0 ABG Base Excess -4.0 L Assessment and Plan Assessment and Plan: Severe Sepsis -Much improved -PNA vs. Cellulitis at injection site(unlikely as the site does not look very inflamed) -LA 5.5 at presentation-->now resolved, procal 14-->6.7 -Vanc + Zosyn D3-->Will narrow to Unasyn today -No cx's to help narrow abx, will try to mainly cover pna -blood cx's, sputum cx's-->NGTD C. Diff Colitis -Likely 2/2 to abx tx -Add on flagyl D1 Mild Hypothermia -Resolved -Likely 2/2 heroin OD -95F on presentation -S/p passive re-warming efforts Aspiration PNA -CXR shows extensive infiltrates on entirety of right lung -Sputum cx's, will do broad abx coverage, O2 as needed Transaminitis -AST:ALT ratio 3:1, EtOH screen neg, 2/2 rhabdo Rhabdo -Likely from lying on floor -CPK 42k-->26K-->20k -NS 150/hr, will target UOP ~150-200/ hr until cpk <4K HAGMA -Resolved -Likely 2/2 LA and BAILEY BAILEY -Resolved -Infection vs. Pre-renal with dehydration vs. rhabdo -Cr 1.7-->1.3-->1.1 -FeNa 0.9, Renal US wnls -UA shows some protein/glucose-->possible CKD component, also blood+ but no rbcs -->rhabdo Heroin OD -Tylenol/salcylate screen neg, UDS positive for opiates -Will test for HIV/Hep---some report of hep C hx? -Trop neg Right Shoulder limited mobility -mild pain, xray neg for fx or dislocation -Consulted ortho-->recommended PT/OT and possible MRI as outpatient if not improved -Can move arm and has sensation throughout, just limited mobility when trying to lift arm -Possibly has rotator cuff tear from fall? Hypophosphatemia -Kphos, monitor DVT Ppx -SCD Hospital Course Summary Disclaimer: The visit summary below is not to be considered part of the above Progress Note. Hospital Course: 09/16/17 15:41 Pt came in very sick with Heroin OD and multiple organ dysfunction and severe sepsis. Started broad spectrum abx, aggressive rehydration, work up for infection and other possible etiologies. Will monitor closely. 09/17/17 10:43 Pt is improving. Lactic acidosis has resolved, bailey has improved, CXR still shows significant infiltrate on right lung but pt not requiring much O2, pt was found to have rhabdo but it is also improving with IV fluids. Pt is starting to go through withdrawals but will try to avoid giving any narcotics to treat, will try to do symptomatic tx for withdrawal with non-opiate options. Will cont. to keep Vanc and Zosyn and await cx results. Ortho evaluated right shoulder and recommended PT/OT. 09/18/17 12:50 Pt improving. Pt had multiple episodes of diarrhea overnight and was diagnosed with C. diff and now is on flagyl. Pt's withdrawals seem to be helped with ativan. Will narrow abx to Unasyn. If continues to do well will try to move him to floor later today.
[2017-09-18] MEDS: AMPICILLIN/SULBACTAM 3 G in NS 100 ML IV SCH ×3 (13:54→20:51)
[2017-09-19] MEDS: AMPICILLIN/SULBACTAM 3 G in NS 100 ML IV SCH ×4 (03:58→20:31)
[2017-09-19] MEDS: NS 1,000 ML IV SCH ×6 (04:01→23:18)
[2017-09-19] MEDS: LACTOBACILLUS (15B cfu) CAPSULE PO SCH ×3 (08:17→17:02)
[2017-09-19] MEDS: MetroNIDAZOLE 500 MG TABLET PO SCH ×3 (08:17→17:02)
--- NOTE | 2017-09-19 08:17 | Progress Note ---
- Date 09/19/17 Subjective: Pt had one episode of diarrhea overnight. Pt also had fever of 102 yesterday evening. Pt denies any n/v/d, f/c, cp or sob. Nurse reports pt not eating very well. Pt denies any abd pain. Objective Vital signs: Temperature 100.2 F 09/19/17 04:00 Pulse Rate 76 09/19/17 07:00 Respiratory Rate 46 H 09/19/17 07:00 Blood Pressure 133/81 09/19/17 07:00 Pulse Oximetry 95 09/19/17 07:00 Rhythm: Sinus Tachycardia Height/Weight/BMI: Weight 78.3 kg - Constitutional Present: no acute distress - Routine HEENT Exam Head: Present: normocephalic, atraumatic - Routine Respiratory Exam Present: decreased breath sounds (right side). Absent: dyspnea - Routine Cardiovascular Exam Present: RRR, no murmur - Routine Abdominal Exam Present: soft, non distended, non tender - Routine Extremities Exam Present: no edema. Absent: cyanosis, clubbing - Routine Skin Exam Present: intact, dry. Absent: erythema - Routine Neurological Exam Present: alert, oriented X3 Results - Labs CBC & Chem 7: 09/19/17 05:20 09/19/17 05:20 Microbiology Results: Microbiology 09/18/17 18:59 Peripheral/Iv Start Blood Culture - Preliminary Culture Initiated - Results Pending 09/18/17 18:59 Peripheral/Iv Start Blood Culture - Preliminary Culture Initiated - Results Pending Assessment and Plan Assessment and Plan: Severe Sepsis -Much improved but still having occasional fevers -PNA vs. Cellulitis at injection site(unlikely as the site does not look very inflamed) -LA 5.5 at presentation-->now resolved, procal 14-->6.7 -Vanc + Zosyn 3 days-->Now on Unasyn D2 -No cx's to help narrow abx, will try to mainly cover pna at this point -blood cx's-->NGTD, pt did not produce sputum to be cx -Will monitor fevers, repeated blood cx's, if fevers continue then may need to do echo C. Diff Colitis -Likely 2/2 to abx tx -on flagyl D2 -Diarrhea improving Mild Hypothermia -Resolved -Likely 2/2 heroin OD -95F on presentation -S/p passive re-warming efforts Aspiration PNA -CXR shows extensive infiltrates on entirety of right lung -Sputum cx's, will do broad abx coverage, O2 as needed Transaminitis -AST:ALT ratio 3:1, EtOH screen neg, 2/2 rhabdo Rhabdo -Likely from lying on floor -CPK 42k-->26K-->20k-->8K -NS 150/hr, will target UOP ~150-200/ hr until cpk <4K HAGMA -Resolved -Likely 2/2 LA and BAILEY BAILEY -Resolved -Infection vs. Pre-renal with dehydration vs. rhabdo -Cr 1.7-->1.3-->1.1 -FeNa 0.9, Renal US wnls -UA shows some protein/glucose-->possible CKD component, also blood+ but no rbcs -->rhabdo Heroin OD -Tylenol/salcylate screen neg, UDS positive for opiates -Will test for HIV/Hep---some report of hep C hx? -Trop neg Right Shoulder limited mobility -mild pain, xray neg for fx or dislocation -Consulted ortho-->recommended PT/OT and possible MRI as outpatient if not improved -Can move arm and has sensation throughout, just limited mobility when trying to lift arm -Possibly has rotator cuff tear from fall? Hypophosphatemia -Resolved -Kphos, monitor DVT Ppx -SCD Hospital Course Summary Disclaimer: The visit summary below is not to be considered part of the above Progress Note. Hospital Course: 09/16/17 15:41 Pt came in very sick with Heroin OD and multiple organ dysfunction and severe sepsis. Started broad spectrum abx, aggressive rehydration, work up for infection and other possible etiologies. Will monitor closely. 09/17/17 10:43 Pt is improving. Lactic acidosis has resolved, bailey has improved, CXR still shows significant infiltrate on right lung but pt not requiring much O2, pt was found to have rhabdo but it is also improving with IV fluids. Pt is starting to go through withdrawals but will try to avoid giving any narcotics to treat, will try to do symptomatic tx for withdrawal with non-opiate options. Will cont. to keep Vanc and Zosyn and await cx results. Ortho evaluated right shoulder and recommended PT/OT. 09/18/17 12:50 Pt improving. Pt had multiple episodes of diarrhea overnight and was diagnosed with C. diff and now is on flagyl. Pt's withdrawals seem to be helped with ativan. Will narrow abx to Unasyn. If continues to do well will try to move him to floor later today. 09/19/17 08:41 Pt continues to make progress. Rhabdo is improving. Pt still having fevers, possibly related to C. diff, repeated blood cx's and will cont. to monitor. Pt is at risk for endocarditis but blood cx's so far have been negative. Will try again today to move him out to the floor.
[2017-09-19] MEDS: CALCIUM CARBONATE Chewable 500mg TABLET PO PRN ×3 (08:22→18:22)
[2017-09-19] MEDS ORDERED: FAMOTIDINE 20 MG TABLET PO PRN (22:56)
[2017-09-20] MEDS: AMPICILLIN/SULBACTAM 3 G in NS 100 ML IV SCH ×2 (07:19→09:16)
[2017-09-20 07:32] VITALS: BP 137/75; PULSE 81; RESP 18; TEMP 99.1; O2SAT 93
[2017-09-20] MEDS: LACTOBACILLUS (15B cfu) CAPSULE PO SCH (09:24)
[2017-09-20] MEDS: MetroNIDAZOLE 500 MG TABLET PO SCH (09:24)
--- NOTE | 2017-09-20 09:26 | Discharge Summary ---
Discharge Information Date of admission: 09/16/17 15:35 Anticipated date of discharge: 09/20/17 (Leaving AMA) Attending Physician: Leo Benson MD Consults: 09/16/17 15:37 Case Management Consult [CONS] Routine Reason For Exam: Physician Consult [CONS] Routine Consulting Provider: Chito Ennis Reason For Exam: shoulder pain and limited mobility Ordering Provider has Notified Administrative Office Clerk: Yes - Laboratory Labs: 09/19/17 05:20 09/20/17 03:58 - Microbiology Microbiology 09/18/17 18:59 Peripheral/Iv Start Blood Culture - Preliminary No Growth After 1 Day 09/18/17 18:59 Peripheral/Iv Start Blood Culture - Preliminary No Growth After 1 Day History of Present Illness HPI: is a 31 y.o. male with PMH of substance abuse, Hep C? who presented after being found on the ground and minimally responsive by his girlfriend. She reports he was doing well last night but this morning he was lying on the ground and disoriented. Pt had a similar episode a couple of weeks ago which was related to heroin overdose. Pt is currently alert and oriented and reports he took heroin again. Denies use of any other substance. Pt reports he injected it through his left arm. Denies any n/v/d, f/c, cp or sob. Reports he has limited mobility in his right arm but has full feeling. He thinks he may have fell on it. Objective Vital signs: Temperature 99.1 F 09/20/17 07:31 Pulse Rate 81 09/20/17 07:31 Respiratory Rate 18 09/20/17 07:31 Blood Pressure 137/75 09/20/17 07:31 Pulse Oximetry 93 09/20/17 07:31 Rhythm: Sinus Tachycardia Height/Weight/BMI: Weight 78.6 kg - Constitutional Present: no acute distress - Routine HEENT Exam Head: Present: normocephalic, atraumatic Eye: Present: EOMI ENT: Present: mucous membranes moist - Routine Respiratory Exam Present: CTA bilaterally. Absent: dyspnea - Routine Cardiovascular Exam Present: RRR, no murmur - Routine Abdominal Exam Present: soft, non distended, non tender - Routine Extremities Exam Present: no edema. Absent: cyanosis, clubbing - Routine Skin Exam Present: intact, dry. Absent: erythema - Routine Neurological Exam Present: alert, oriented X3 Hospital Course This is a general summary of the patient's hospital course. For more details refer to the complete medical record. Hospital course: 09/16/17 15:41 Pt came in very sick with Heroin OD and multiple organ dysfunction and severe sepsis. Started broad spectrum abx, aggressive rehydration, work up for infection and other possible etiologies. Will monitor closely. 09/17/17 10:43 Pt is improving. Lactic acidosis has resolved, billy has improved, CXR still shows significant infiltrate on right lung but pt not requiring much O2, pt was found to have rhabdo but it is also improving with IV fluids. Pt is starting to go through withdrawals but will try to avoid giving any narcotics to treat, will try to do symptomatic tx for withdrawal with non-opiate options. Will cont. to keep Vanc and Zosyn and await cx results. Ortho evaluated right shoulder and recommended PT/OT. 09/18/17 12:50 Pt improving. Pt had multiple episodes of diarrhea overnight and was diagnosed with C. diff and now is on flagyl. Pt's withdrawals seem to be helped with ativan. Will narrow abx to Unasyn. If continues to do well will try to move him to floor later today. 09/19/17 08:41 Pt continues to make progress. Rhabdo is improving. Pt still having fevers, possibly related to C. diff, repeated blood cx's and will cont. to monitor. Pt is at risk for endocarditis but blood cx's so far have been negative. Will try again today to move him out to the floor. Summary Pt was admitted d/t heroin OD in the icu with mild hypothermia, severe sepsis and had multiple organ dysfunction along with aspiration pna, rhabdo. Pt was treated and did well. First set of blood cx's were negative but pt had persistent fevers so another set was drawn yesterday. Pt initially received Van + Zosyn for 3 days and then was narrowed down to Unasyn. Pt developed C. diff during hospital stay and was treated with Flagyl. Pt also had decreased mobility of right shoulder because of falling on it but xrays were negative for any fx's and ortho was consulted and recommended PT/OT and outpatient eval. Pt possibly could have rotator cuff tear. Today pt wanted to go home d/t family being in town for thanksgiving but pt had not been without a fever for 48 hrs and second set of blood cx's were still pending so it was discussed with pt that it is best for him to stay in the hospital a little bit longer but pt decided to go AMA. There was some concern for endocarditis with hx of injection drug use and persistent fevers but pt decided to leave before echo could be done. Although blood cx's have been negative so far. Risks and benefits of leaving AMA were discussed with pt. It was recommended to pt to follow up with pcp in 7 days and to follow up on blood cx results. Will send pt out on 7 days of Amoxicillin and Flagyl which will cover aspiration pna and c. diff. Pt was instructed to come back to the hospital if any of his sx's worsened. CPK was down to ~ 6K on discharge. Discharge Plan - Discharge Disposition Discharge Date: 09/20/17 Disposition: 07 Against Medical Advice *Condition: Improved Reason For Visit (Visit label in EMR): Herion Overdose - Discharge Medications *Discharge Medications: New metroNIDAZOLE [Flagyl] 500 mg PO Q8H #21 tab Amoxicillin 1 cap PO Q8H #21 cap Continue Trazodone [Desyrel] 200 mg PO HS PRN PRN Reason: Anxiety/Sleep BuPROPion XL [Wellbutrin Xl] 300 mg PO DAILY Mirtazapine [Remeron] 15 mg PO HS - Discharge Packet/Instructions *Diet: Regular *Activity: As tolerated *Wound Care: NA Additional Instructions: Pt needs to follow up on blood cx results. Pt needs to follow up with pcp in 7 days *Expected Signs/Symptoms: mild abdominal discomfort, some diarrhea *Notify Physician if: Fever, chills, severe n/v/d *During Business Hours Contact: Primary Care Doctor *After Business Hours Contact: ED/Urgent care *Pending Lab/Results: Follow up w/your PCP - Referrals/Follow Up - Patient Handouts - Dismissal Complete Discharge Instructions are:: Complete
[2017-09-20] MEDS ORDERED: AMOXICILLIN 500 MG CAPSULE PO SCH ×2 (09:52)
[2017-09-20] MEDS ORDERED: MetroNIDAZOLE 500 MG TABLET PO SCH ×2 (09:53)
[2017-09-21] MEDS ORDERED: AMOXICILLIN 500 MG CAPSULE PO SCH
== END 2017-09-20 10:00 | disposition left against medical advice (07) | DRG 871 ==
LOC: ED 08:46 → CCU 08:46 → MED 09-19 21:09
PROVIDERS: ADMIT Internal Medicine; ATTEND Internal Medicine

== ENCOUNTER 2017-10-18 17:33 | Observation (INO) ==
[2017-10-18] MEDS ORDERED: NS 1,000 ML IV ONE (17:39)
--- NOTE | 2017-10-18 17:41 | Emergency Department Report ---
Overdose HPI - General Chief Complaint: [facility] Stated Complaint: Heroin overdose <February,[facility] 10/18/17 20:50> Time Seen by Provider: 10/18/17 17:40 <February,[facility] 10/18/17 20:50> Source: patient <Bryan Solitario [facility] 10/18/17 18:33> Mode of arrival: ambulatory <Bryan Solitario [facility] 10/18/17 18:33> Limitations: no limitations <Bryan Solitario [facility] 10/18/17 18:33> - History of Present Illness HPI Narrative: Patient is a 31-year-old male history of heroin abuse, was hospitalized 1 month ago for heroin overdose overnight observation status requiring Narcan was discharged with appointment sac the next day. Patient resents to the ER post heroin overdose. Patient was found unresponsive in his bed by family member EMS was called. Patient was given 1 mg of Narcan in the field with increase in mentation increased blood pressure, increased respiratory drive. Patient was originally thought to be CODE BLUE, however was triaged code red by EMS. Patient was loaded into the unit brought to the ER for evaluation on arrival patient is mildly tachycardic blood pressure within defined limits, is tearful but calm and cooperative. Patient denies any attempt to harm himself, was an accidental overdose. <KassiBryan [facility] 10/18/17 18:36> MD complaint: accidental overdose <Kam Solitarion [facility] 10/18/17 18:36> Onset (ago): minute(s) <Bryan Solitario [facility] 10/18/17 18:36> - Related Data Home Medications Medication Instructions Recorded Confirmed BuPROPion XL [Wellbutrin Xl] 300 mg PO DAILY 09/02/17 10/18/17 Mirtazapine [Remeron] 15 mg PO HS 09/02/17 10/18/17 <[facility]> Allergies Allergy/AdvReac Type Severity Reaction Status Date / Time No Known Allergies Allergy Verified 10/18/17 17:39 <February,[facility] 10/18/17 20:50> Review of Systems Constitutional: Denies: fever, chills <KassiBryan [facility] 10/18/17 18:36> ENT: Denies: throat pain, dental pain <CamasKam devinen Q - 10/18/17 18:36> Cardiovascular: Denies: chest pain, palpitations <CamasKam devinen Q - 10/18/17 18:36> Respiratory: Denies: cough, dyspnea <Kam Solitarion Q - 10/18/17 18:36> Gastrointestinal: Denies: abdominal pain, nausea, vomiting <Kam Solitarion Q - 10/18/17 18:36> Genitourinary: Denies: urgency, dysuria, frequency <CamasKam devinen Q - 18:36> Musculoskeletal: Denies: back pain, joint swelling <CamasKam devinen Q - 18:36> Neurological: Denies: headache, weakness <CamasKam devinen Q - 10/18/17 18:36> Psychiatric: Denies: anxiety, depression <KassiBryan devine Q - 10/18/17 18:36> [facility] Patient Stated Medical History Pneumonia Yes: HX OF ASPIRATION PNEUMONIA Other Infectious Yes: positive for hep c Depression Yes Substance Use Disorder Yes: HEROIN <February,Pablito M - 10/18/17 20:50> Medical History Updates: Heroin abuse. Hep C. Depression <CamasBryan Q - 10/18/17 17:41> Surgical History: * [place] Teeth <CamasBryan devine Q - 10/18/17 17:41> - Social History Smoking status: Current every day smoker <CamasBryan devine Q - 10/18/17 17:41> Substance use type: does not use <Bryan Solitario Q - 10/18/17 18:36> Alcohol intake frequency: does not drink <KassiBryan devine Q - 10/18/17 18:36> Physical Exam - General General appearance: alert, in no apparent distress <Bryan Solitario Q - 18:36> - Eye Eye exam: Present: PERRL, EOMI <Bryan Solitario Q - 10/18/17 18:36> - ENT ENT exam: Present: normal oropharynx <Bryan Solitario Q - 10/18/17 18:36> - Neck Neck exam: Present: trachea midline <Bryan Solitario Q - 10/18/17 18:36> - Chest Chest inspection: Present: symmetric chest wall rise. Absent: tenderness < Bryan Solitario Q - 10/18/17 18:36> - Respiratory Respiratory exam: Present: normal lung sounds bilaterally. Absent: respiratory distress, wheezes, stridor <Bryan Solitario Q - 10/18/17 18:36> - Cardiovascular Cardiovascular exam: Present: regular rate, normal rhythm, normal heart sounds <Bryan Solitario Q - 10/18/17 18:36> - Abdominal Exam Abdominal exam: Present: soft, normal bowel sounds. Absent: distention, tenderness <Bryan Solitario Q - 10/18/17 18:36> - Extremities Exam Extremities exam: Present: full ROM. Absent: tenderness <Bryan Solitario Q - 18:36> - Back Exam Back exam: Absent: full ROM, tenderness, CVA tenderness (R), CVA tenderness (L) <Bryan Solitario Q - 10/18/17 18:36> - Skin Skin exam: Present: warm, dry <Bryan Solitario Q - 10/18/17 18:36> - Neurological Exam Neurological exam: Present: alert, oriented X3 <Bryan Solitario Q - 10/18/17 18: 36> - Psychiatric Psychiatric exam: Present: normal affect, normal mood <Bryan Solitario Q - 10/18 18:36> Course - Consultations Consultation #1: [place] Telemed: Will admit for overnight obs. <[facility] - 10/18/17 20:50> Time: 20:45 <eb - 10/18/17 20:50> Vital Signs Temperature 97.9 F 10/18/17 17:33 Pulse Rate 99 10/18/17 17:33 Respiratory Rate 18 10/18/17 17:33 Blood Pressure 133/77 10/18/17 17:33 Pulse Oximetry 99 10/18/17 17:33 Temperature 97.9 F 10/18/17 17:33 Pulse Rate 100 10/18/17 18:22 Respiratory Rate 10 10/18/17 18:22 Blood Pressure 118/76 10/18/17 18:22 Pulse Oximetry 92 10/18/17 18:22 <[facility] - 10/18/17 20:50> Vital Signs Temperature 97.9 F 10/18/17 17:33 Pulse Rate 99 10/18/17 17:33 Respiratory Rate 18 10/18/17 17:33 Blood Pressure 133/77 10/18/17 17:33 Pulse Oximetry 99 10/18/17 17:33 Temperature 97.9 F 10/18/17 17:33 Pulse Rate 100 10/18/17 18:22 Respiratory Rate 10 10/18/17 18:22 Blood Pressure 118/76 10/18/17 18:22 Pulse Oximetry 92 10/18/17 18:22 <Bryan Solitario Q - 10/18/17 18:33> Overdose - MDM Narrative Medical decision making narrative: Discussed with Dr. Person, will transfer care to him at 1836 <Bryan Solitario Q - 10/18/17 18:36> - Differential Diagnosis Likely: cocaine intoxication, suicide attempt by multiple drug overdose, poisoning by opiate or related narcotic, drug overdose, acetaminophen overdose, accidental drug ingestion <Bryan Solitario Q - 10/18/17 18:36> - Medical Records Attestation: I reviewed the patient's medical records. <Bryan Solitario Q - 18:36> - Lab Data Result diagrams: 10/18/17 18:36 10/18/17 18:36 <Pablito Person M - 10/18/17 20:50> Lab Results 10/18/17 10/18/17 10/18/17 Range/Units 18:36 18:36 20:08 WBC 6.7 (4.5-11.0) T/MM3 RBC 4.41 L (4.50-5.90) M/MM3 Hgb 12.8 L (13.5-17.5) GM/DL Hct 38.8 L (41-53) % MCV 88.0 (80-100) UM3 MCH 29.0 (26-34) UUG MCHC 33.0 (31-37) GM/DL RDW Std Deviation 39.7 (36.9-50.2) FL Plt Count 169 (130-400) T/MM3 MPV 10.1 (9.4-12.4) UM3 Immature Gran % (Auto) 0.1 (0.0-0.5) % Neut % (Auto) 64.1 (33-66) % Lymph % (Auto) 25.2 (23-45) % [place] % (Auto) 8.9 (0-9.0) % Eos % (Auto) 1.6 (0-4) % Baso % (Auto) 0.1 (0-2) % Neut # (Auto) 4.3 (1.8-7.7) T/MM3 Lymph # (Auto) 1.7 (1-4.8) T/MM3 [place] # (Auto) 0.6 (0-0.8) T/MM3 Eos # (Auto) 0.1 (0-0.5) T/MM3 Baso # (Auto) 0.0 (0-0.2) T/MM3 Abs Immat Gran (auto) 0.01 (0.00-0.03) T/MM3 Turbidity < 20 (0-20) Sodium 137 (134-144) MEQ/L Potassium 3.7 (3.6-5) MEQ/L Chloride 105 (98-107) MEQ/L Carbon Dioxide 27 (22-30) MEQ/L Anion Gap 5 (5-15) MEQ/L BUN 18.0 (9-20) MG/DL Creatinine 1.0 (0.8-1.5) MG/DL GFR Calculation 88 BUN/Creatinine Ratio 18 (6-26) RATIO Glucose 112 H (75-110) MG/DL Calculated Osmolality 267 (261-280) MOSM/KG Calcium 8.0 L (8.4-10.2) MG/DL Total Bilirubin 0.30 (0.20-1.30) MG/DL Icterus Index < 2 (0-7) AST 31 (17-59) U/L ALT 37 (21-72) U/L Alkaline Phosphatase 73 (38-126) U/L Total Protein 7.0 (6.3-8.2) G/DL Albumin 4.0 (3.5-5.0) G/DL Globulin 3.0 (2.4-3.6) G/DL Albumin/Globulin Ratio 1.3 (1.1-2.2) RATIO Specimen Hemolysis < 15 (0-25) Ur Collection Type Urine, clean catch Urine Color Yellow (YELLOW) Urine Clarity Clear Urine pH 6.0 (5.0-8.0) Ur Specific [place] 1.025 (1.015-1.025) Urine Protein Trace A (NEGATIVE) Urine Glucose (UA) Negative (NEGATIVE) Urine Ketones Negative (NEGATIVE) Urine Occult Blood Negative (NEGATIVE) Urine Nitrate Negative (NEGATIVE) Urine Bilirubin Negative (NEGATIVE) Urine Urobilinogen 0.2 (NORMAL) EU/DL Ur Leukocyte Esterase Negative (NEGATIVE) Urinalysis Comment Microscopic not ind. Salicylates < 1.0 L (2-20) MG/DL Urine Opiates Screen ng/mL Ur Oxycodone Screen ng/mL Urine Methadone Screen ng/mL Ur Propoxyphene Screen ng/mL Acetaminophen < 10 L (10-30) UG/ML Ur Barbiturates Screen ng/mL U Tricyclic Antidepress ng/mL Ur Phencyclidine Scrn ng/mL Ur Amphetamines Screen ng/mL U Methamphetamines Scrn ng/mL U Benzodiazepines Scrn ng/mL Urine Cocaine Screen ng/mL U Cannabinoids Screen ng/mL Ur Drug Screen Confirm Alcohol, Quantitative <10 (<10) MG/DL 10/18/17 10/18/17 Range/Units 20:08 20:08 WBC (4.5-11.0) T/MM3 RBC (4.50-5.90) M/MM3 Hgb (13.5-17.5) GM/DL Hct (41-53) % MCV (80-100) UM3 MCH (26-34) UUG MCHC (31-37) GM/DL RDW Std Deviation (36.9-50.2) FL Plt Count (130-400) T/MM3 MPV (9.4-12.4) UM3 Immature Gran % (Auto) (0.0-0.5) % Neut % (Auto) (33-66) % Lymph % (Auto) (23-45) % [place] % (Auto) (0-9.0) % Eos % (Auto) (0-4) % Baso % (Auto) (0-2) % Neut # (Auto) (1.8-7.7) T/MM3 Lymph # (Auto) (1-4.8) T/MM3 [place] # (Auto) (0-0.8) T/MM3 Eos # (Auto) (0-0.5) T/MM3 Baso # (Auto) (0-0.2) T/MM3 Abs Immat Gran (auto) (0.00-0.03) T/MM3 Turbidity (0-20) Sodium (134-144) MEQ/L Potassium (3.6-5) MEQ/L Chloride (98-107) MEQ/L Carbon Dioxide (22-30) MEQ/L Anion Gap (5-15) MEQ/L BUN (9-20) MG/DL Creatinine (0.8-1.5) MG/DL GFR Calculation BUN/Creatinine Ratio (6-26) RATIO Glucose (75-110) MG/DL Calculated Osmolality (261-280) MOSM/KG Calcium (8.4-10.2) MG/DL Total Bilirubin (0.20-1.30) MG/DL Icterus Index (0-7) AST (17-59) U/L ALT (21-72) U/L Alkaline Phosphatase (38-126) U/L Total Protein (6.3-8.2) G/DL Albumin (3.5-5.0) G/DL Globulin (2.4-3.6) G/DL Albumin/Globulin Ratio (1.1-2.2) RATIO Specimen Hemolysis (0-25) Ur Collection Type Urine Color (YELLOW) Urine Clarity Urine pH (5.0-8.0) Ur Specific [place] (1.015-1.025) Urine Protein (NEGATIVE) Urine Glucose (UA) (NEGATIVE) Urine Ketones (NEGATIVE) Urine Occult Blood (NEGATIVE) Urine Nitrate (NEGATIVE) Urine Bilirubin (NEGATIVE) Urine Urobilinogen (NORMAL) EU/DL Ur Leukocyte Esterase (NEGATIVE) Urinalysis Comment Salicylates (2-20) MG/DL Urine Opiates Screen Negative ng/mL Ur Oxycodone Screen Positive ng/mL Urine Methadone Screen Negative ng/mL Ur Propoxyphene Screen Negative ng/mL Acetaminophen (10-30) UG/ML Ur Barbiturates Screen Negative ng/mL U Tricyclic Antidepress Negative ng/mL Ur Phencyclidine Scrn Negative ng/mL Ur Amphetamines Screen Negative ng/mL U Methamphetamines Scrn Negative ng/mL U Benzodiazepines Scrn Negative ng/mL Urine Cocaine Screen Negative ng/mL U Cannabinoids Screen Negative ng/mL Ur Drug Screen Confirm Sent out Alcohol, Quantitative (<10) MG/DL <February,Pablito M - 10/18/17 20:50> Lab Results 12/21/17 12/21/17 12/21/17 Range/Units 18:36 18:36 20:08 WBC 6.7 (4.5-11.0) T/MM3 RBC 4.41 L (4.50-5.90) M/MM3 Hgb 12.8 L (13.5-17.5) GM/DL Hct 38.8 L (41-53) % MCV 88.0 (80-100) UM3 MCH 29.0 (26-34) UUG MCHC 33.0 (31-37) GM/DL RDW Std Deviation 39.7 (36.9-50.2) FL Plt Count 169 (130-400) T/MM3 MPV 10.1 (9.4-12.4) UM3 Immature Gran % (Auto) 0.1 (0.0-0.5) % Neut % (Auto) 64.1 (33-66) % Lymph % (Auto) 25.2 (23-45) % [place] % (Auto) 8.9 (0-9.0) % Eos % (Auto) 1.6 (0-4) % Baso % (Auto) 0.1 (0-2) % Neut # (Auto) 4.3 (1.8-7.7) T/MM3 Lymph # (Auto) 1.7 (1-4.8) T/MM3 [place] # (Auto) 0.6 (0-0.8) T/MM3 Eos # (Auto) 0.1 (0-0.5) T/MM3 Baso # (Auto) 0.0 (0-0.2) T/MM3 Abs Immat Gran (auto) 0.01 (0.00-0.03) T/MM3 Turbidity < 20 (0-20) Sodium 137 (134-144) MEQ/L Potassium 3.7 (3.6-5) MEQ/L Chloride 105 (98-107) MEQ/L Carbon Dioxide 27 (22-30) MEQ/L Anion Gap 5 (5-15) MEQ/L BUN 18.0 (9-20) MG/DL Creatinine 1.0 (0.8-1.5) MG/DL GFR Calculation 88 BUN/Creatinine Ratio 18 (6-26) RATIO Glucose 112 H (75-110) MG/DL Calculated Osmolality 267 (261-280) MOSM/KG Calcium 8.0 L (8.4-10.2) MG/DL Total Bilirubin 0.30 (0.20-1.30) MG/DL Icterus Index < 2 (0-7) AST 31 (17-59) U/L ALT 37 (21-72) U/L Alkaline Phosphatase 73 (38-126) U/L Total Protein 7.0 (6.3-8.2) G/DL Albumin 4.0 (3.5-5.0) G/DL Globulin 3.0 (2.4-3.6) G/DL Albumin/Globulin Ratio 1.3 (1.1-2.2) RATIO Specimen Hemolysis < 15 (0-25) Ur Collection Type Urine, clean catch Urine Color Yellow (YELLOW) Urine Clarity Clear Urine pH 6.0 (5.0-8.0) Ur Specific [place] 1.025 (1.015-1.025) Urine Protein Trace A (NEGATIVE) Urine Glucose (UA) Negative (NEGATIVE) Urine Ketones Negative (NEGATIVE) Urine Occult Blood Negative (NEGATIVE) Urine Nitrate Negative (NEGATIVE) Urine Bilirubin Negative (NEGATIVE) Urine Urobilinogen 0.2 (NORMAL) EU/DL Ur Leukocyte Esterase Negative (NEGATIVE) Urinalysis Comment Microscopic not ind. Salicylates < 1.0 L (2-20) MG/DL Urine Opiates Screen ng/mL Ur Oxycodone Screen ng/mL Urine Methadone Screen ng/mL Ur Propoxyphene Screen ng/mL Acetaminophen < 10 L (10-30) UG/ML Ur Barbiturates Screen ng/mL U Tricyclic Antidepress ng/mL Ur Phencyclidine Scrn ng/mL Ur Amphetamines Screen ng/mL U Methamphetamines Scrn ng/mL U Benzodiazepines Scrn ng/mL Urine Cocaine Screen ng/mL U Cannabinoids Screen ng/mL Ur Drug Screen Confirm Alcohol, Quantitative <10 (<10) MG/DL 10/18/17 10/18/17 Range/Units 20:08 20:08 WBC (4.5-11.0) T/MM3 RBC (4.50-5.90) M/MM3 Hgb (13.5-17.5) GM/DL Hct (41-53) % MCV (80-100) UM3 MCH (26-34) UUG MCHC (31-37) GM/DL RDW Std Deviation (36.9-50.2) FL Plt Count (130-400) T/MM3 MPV (9.4-12.4) UM3 Immature Gran % (Auto) (0.0-0.5) % Neut % (Auto) (33-66) % Lymph % (Auto) (23-45) % [place] % (Auto) (0-9.0) % Eos % (Auto) (0-4) % Baso % (Auto) (0-2) % Neut # (Auto) (1.8-7.7) T/MM3 Lymph # (Auto) (1-4.8) T/MM3 [place] # (Auto) (0-0.8) T/MM3 Eos # (Auto) (0-0.5) T/MM3 Baso # (Auto) (0-0.2) T/MM3 Abs Immat Gran (auto) (0.00-0.03) T/MM3 Turbidity (0-20) Sodium (134-144) MEQ/L Potassium (3.6-5) MEQ/L Chloride (98-107) MEQ/L Carbon Dioxide (22-30) MEQ/L Anion Gap (5-15) MEQ/L BUN (9-20) MG/DL Creatinine (0.8-1.5) MG/DL GFR Calculation BUN/Creatinine Ratio (6-26) RATIO Glucose (75-110) MG/DL Calculated Osmolality (261-280) MOSM/KG Calcium (8.4-10.2) MG/DL Total Bilirubin (0.20-1.30) MG/DL Icterus Index (0-7) AST (17-59) U/L ALT (21-72) U/L Alkaline Phosphatase (38-126) U/L Total Protein (6.3-8.2) G/DL Albumin (3.5-5.0) G/DL Globulin (2.4-3.6) G/DL Albumin/Globulin Ratio (1.1-2.2) RATIO Specimen Hemolysis (0-25) Ur Collection Type Urine Color (YELLOW) Urine Clarity Urine pH (5.0-8.0) Ur Specific [place] (1.015-1.025) Urine Protein (NEGATIVE) Urine Glucose (UA) (NEGATIVE) Urine Ketones (NEGATIVE) Urine Occult Blood (NEGATIVE) Urine Nitrate (NEGATIVE) Urine Bilirubin (NEGATIVE) Urine Urobilinogen (NORMAL) EU/DL Ur Leukocyte Esterase (NEGATIVE) Urinalysis Comment Salicylates (2-20) MG/DL Urine Opiates Screen Negative ng/mL Ur Oxycodone Screen Positive ng/mL Urine Methadone Screen Negative ng/mL Ur Propoxyphene Screen Negative ng/mL Acetaminophen (10-30) UG/ML Ur Barbiturates Screen Negative ng/mL U Tricyclic Antidepress Negative ng/mL Ur Phencyclidine Scrn Negative ng/mL Ur Amphetamines Screen Negative ng/mL U Methamphetamines Scrn Negative ng/mL U Benzodiazepines Scrn Negative ng/mL Urine Cocaine Screen Negative ng/mL U Cannabinoids Screen Negative ng/mL Ur Drug Screen Confirm Sent out Alcohol, Quantitative (<10) MG/DL <Bryan Solitario 10/18/17 18:33> Disposition Clinical Impression: Heroin overdose Qualifiers: Encounter type: initial encounter Injury intent: accidental or unintentional Qualified Code(s): T40.1X1A - Poisoning by heroin, accidental (unintentional), initial encounter <February,[facility] 10/18/17 20:50> Disposition: 02 To [facility] <[facility] 10/18/17 20:50> Print Language: Macedonian <[facility] 10/18/17 20:50> Prescriptions: No Action BuPROPion XL [Wellbutrin Xl] 300 mg PO DAILY Mirtazapine [Remeron] 15 mg PO HS <[facility] 10/18/17 20:50> Referrals: Doris Kaye APRN [Family Provider] - <[facility] 10/18/17 20:50> Time of Disposition: 20:49 <February,[facility] 10/18/17 20:50> - Seen By: physician <February,[facility] 10/18/17 20:50>
--- OUTSIDE RECORDS SUMMARY | 2017-10-18 17:48 | External Medical Summary | Clinical Summary ---
:1985 Author Organization [facility] Address [address] [place] [address] Phone Support Name Relationship Address Phone Unavailable Unavailable [id number] [facility] [address] [place] [address] Allergies No Known Allergies Current Medications No known medications Active Problems Not on file Social History Tobacco Use Types Packs/Day Years Used Date Current Every Day Smoker Alcohol Use Drinks/Week oz/Week Comments Yes socially Sex Assigned at Date Recorded Not on file Last Filed Vital Signs Vital Sign Reading Time Taken Blood Pressure 111/73 02/15/2013 1:57 PM CDT Pulse 94 02/15/2013 1:22 PM CDT Temperature 36.8 C (98.2 F) 02/15/2013 1:59 PM CDT Respiratory Rate 18 02/15/2013 1:59 PM CDT Oxygen Saturation 98% 02/15/2013 1:59 PM CDT Inhaled Oxygen Concentration - - Weight 66.7 kg (147 lb 1.6 oz) 02/15/2013 1:22 PM CDT Height 182.9 cm (6') 02/15/2013 1:22 PM CDT Body Mass Index 19.95 02/15/2013 1:22 PM CDT Plan of Treatment Health Maintenance Due Date Last Done Comments DTaP,Tdap,and Td Vaccines (1 - Tdap) 2005 Influenza Vaccine (#1) 2017 Results Not on filefrom Last 3 Months
[2017-10-18] MEDS ORDERED: NALOXONE 0.4 MG/ML INJECTION IVP ONE ×2 (19:01→20:48)
[2017-10-18] MEDS ORDERED: NALOXONE 0.4 MG/ML INJECTION IM ONE (20:48)
[2017-10-18] MEDS ORDERED: ONDANSETRON 4 MG/2 ML INJECTION IVP ONE (22:00)
[2017-10-18] MEDS: SALINE FLUSH 10ml SYRINGE IVF PRN ×3 (22:16→23:41)
[2017-10-18] MEDS ORDERED: ONDANSETRON ODT 4 MG TABLET PO ONE (22:25)
[2017-10-18] MEDS ORDERED: NALOXONE 0.4 MG/ML INJECTION IVP PRN (22:48)
[2017-10-18] MEDS ORDERED: NALOXONE 2 MG/2 ML INJECTION PFS IVP PRN (23:06)
[2017-10-18] MEDS ORDERED: ONDANSETRON 4 MG/2 ML INJECTION IVP PRN (23:06)
[2017-10-18] MEDS ORDERED: NS 1,000 ML IV SCH (23:06)
[2017-10-18 23:33] VITALS: BMI 23.7
--- NOTE | 2017-10-18 23:38 | History & Physical Report ---
History of Present Illness Date: 10/19/17 Chief complaint: none HPI: Patient seen with nursing assistance on 10/18/2017 Mr. Dukes is a 31yo man with h/o major depression and polysubstance abuse presenting with unresponsiveness per family. Patient with presumed unintentional overdose and now after 1mg narcan by EMS at home, and multiple 0.4mg doses can tell me that he took heroin at 1645 with missed vein the first timie so redosed with subsequent high then LOC. No intermittent nausea but no pain or sob. Is oriented. No other life changes, is working and functional. Review of Systems All systems PM: 10-point ROS was reviewed, no additional remarkable complaints except Past Medical History Medical History Updates: Heroin abuse. Hep C. Depression Surgical History: * [place] Teeth Family History Updates: no early CAD - Social History Smoking status: Current every day smoker Housing: apartment Social history: works and wanted to work tomorrow. fiancee Medications Home Medications Medication Instructions Recorded Confirmed Type BuPROPion XL [Wellbutrin Xl] 300 mg PO DAILY 09/02/17 10/18/17 History Mirtazapine [Remeron] 15 mg PO HS 09/02/17 10/18/17 History Allergies Allergy/AdvReac Type Severity Reaction Status Date / Time No Known Allergies Allergy Verified 10/18/17 17:39 Exam Vital Signs: Temperature 97.9 F 10/18/17 17:33 Pulse Rate 84 10/18/17 22:45 Respiratory Rate 8 L 10/18/17 22:45 Blood Pressure 114/68 10/18/17 22:30 Pulse Oximetry 89 L 10/18/17 22:45 Telemetry Rhythm: Sinus Rhythm Height/Weight/BMI: Height 1.78 m Weight 75 kg Body Mass Index 23.7 - Constitutional Present: no acute distress - Routine HEENT Exam Head: Present: normocephalic Eye: Present: EOMI - Routine Neck Exam Present: full ROM - Routine Respiratory Exam Present: CTA bilaterally. Absent: accessory muscle use - Routine Cardiovascular Exam Present: RRR, S1, S2 - Routine Abdominal Exam Present: soft, normoactive bowel sounds - Routine Extremities Exam Absent: cyanosis, clubbing - Routine Back/Spine/Pelvis Exam Back/Spine: Present: full ROM - Routine Neurological Exam Present: alert, oriented X3, CN II-XII intact Results - Labs CBC & Chem 7: 10/18/17 18:36 10/19/17 04:19 Assessment and Plan (1) Major depression Current visit: Yes Status: Acute (2) Heroin overdose Current visit: Yes Status: Acute Assessment and Plan: 1. Polysubstance abuse with at least heroin and tobacco with accidental overdose --obs ICU supportive care overnight with prn narcan and IVF. 2. Major depression--says meds help and functional. 10/19/17-Dr. Momin H&P above by Dr. Brown reviewed and agree. Please see my additions below. Chief complaint heroin overdose History of present illness: The patient states that he took heroin last night and the night before to help with stress. He states he was not trying to harm himself. EMS was called by family and he was given 1 mg of Narcan in the field. He was given 4 doses of 0.4 mg Narcan since admission. Last dose of Narcan was at 0050 this morning. He states that since his last admission with a heroin overdose he is only used heroin 3 times. He states he's had one other heroin overdose in March of this year and has overdosed on methamphetamine once in 2014. He states he's had a long history of opiate addiction since age of 14 or 15 when he suffered third- degree gill on 30% of his body and was started on narcotics. He states he has been going to outpatient treatment for addiction with [facility]. He also states he's been using his Wellbutrin and Remeron for depression. He states he has not needed the trazodone because he is no longer having difficulty sleeping. This morning, he states he feels fine other than a little drowsy. Prior to his overdose he stated he was feeling well and had no complaints. Past medical history: Narcotic addiction since his early teens, hepatitis C, depression, alcohol-induced pancreatitis approximately 3 years ago, pneumonia at the age of 4. C. difficile in August 2017. Rhabdomyolysis and sepsis in 2016 secondary to heroin overdose. Heroin overdose March 2017. Methamphetamine overdose in May 2015. Past surgical history: [place] teeth extraction Family history: His older brother in his sleep in 2006 at the age of 22. Cause was unknown but could've been an aneurysm or sleep apnea per the patient. Patient's father has diabetes and tobacco addiction and has an amputation because of poor circulation. His mom has skin cancer of unknown type. 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 He is engaged to be . He smokes tobacco every day. He quit using alcohol approximately 3 years ago. He has used heroin 3 times since he was admitted a month ago with heroin overdose. He states he has been going to outpatient treatment for addiction. He formerly used methamphetamine at has quit. Allergies: Possible allergy to amoxicillin which she developed a rash 1 week after it was discontinued. Comprehensive review of systems: The patient states his skin is frequently itchy. He has a chronic cough which she thinks is from smoking. Otherwise, negative other than the above in history of present illness. Physical exam: Blood pressure 103/60, O2 sat 97% on room air, heart rate 69, respirations 8-15. GEN-alert, oriented, no acute distress HEENT-sclera anicteric, oropharynx is moist NECK-supple CV-regular rate and rhythm CHEST-clear to auscultation bilaterally ABD-soft, nontender with positive bowel sounds -no Hook EXT-no edema NEURO-no focal deficits SKIN-no significant rash Lab today shows basic metabolic profile is essentially normal. Hemoglobin is 12.8. Urine drug screen is positive for oxycodone Impression Recurrent Heroin overdose-unintentional Polysubstance abuse Major depression Anemia-stable, normocytic Hepatitis C Plan Overall, patient appears to be doing better at this time. Will advance diet and increase activity. We'll consult case management to determine if he can continue with outpatient treatment with [facility] or whether he needs a reevaluation. DVT Prophylaxis: SCD's Resuscitation Status: Full Code - Physician Narrative Narrative: Date: 10/18/17 Time: 2334 Hospital Course Summary Disclaimer: The visit summary below is not to be considered part of the above Progress Note.
[2017-10-18] MEDS ORDERED: NICOTINE 14 MG PATCH TD PRN (23:42)
[2017-10-19] MEDS ORDERED: NICOTINE PATCH REMOVAL TD PRN (06:09)
[2017-10-19] MEDS ORDERED: NALOXONE 0.4 MG/ML INJECTION IVP PRN (06:15)
--- NOTE | 2017-10-19 12:16 | Discharge Summary ---
Discharge Information Date of admission: 10/18/17 22:30 Anticipated date of discharge: 10/19/17 Attending Physician: Abbie Momin MD Primary care physician: Doris Kaye APRN Consults: 10/19/17 08:30 Case Management Consult [CONS] Routine Reason For Exam: heroin OD, pt states he has outpt treatment w/ [facility] 10/19/17 08:53 Physician Consult [CONS] Routine Consulting Provider: Mami Mattson Reason For Exam: overdose heroin, ?unintentional, depression Ordering Provider has Notified Supervisor Files: Yes - Discharge Diagnosis (1) Major depression Status: Acute (2) Heroin overdose Status: Acute Recurrent heroin overdose, unintentional Polysubstance abuse Major depression Anemia stable, normocytic Hepatitis C - Laboratory Labs: 10/19/17 04:19 Laboratory Tests 10/18/17 18:36 WBC 6.7 Hgb 12.8 L MCV 88.0 Plt Count 169 History of Present Illness HPI: Patient seen with nursing assistance on 10/18/2017 Mr. Dukes is a 31yo man with h/o major depression and polysubstance abuse presenting with unresponsiveness per family. Patient with presumed unintentional overdose and now after 1mg narcan by EMS at home, and multiple 0.4mg doses can tell me that he took heroin at 1645 with missed vein the first timie so redosed with subsequent high then LOC. No intermittent nausea but no pain or sob. Is oriented. No other life changes, is working and functional. 10/19/17 12:11 Dr. Momin History of present illness: The patient states that he took heroin last night and the night before to help with stress. He states he was not trying to harm himself. EMS was called by family and he was given 1 mg of Narcan in the field. He was given 4 doses of 0.4 mg Narcan since admission. Last dose of Narcan was at 0050 this morning. He states that since his last admission with a heroin overdose he is only used heroin 3 times. He states he's had one other heroin overdose in March of this year and has overdosed on methamphetamine once in 2014. He states he's had a long history of opiate addiction since age of 14 or 15 when he suffered third- degree gill on 30% of his body and was started on narcotics. He states he has been going to outpatient treatment for addiction with [facility]. He also states he's been using his Wellbutrin and Remeron for depression. He states he has not needed the trazodone because he is no longer having difficulty sleeping. This morning, he states he feels fine other than a little drowsy. Prior to his overdose he stated he was feeling well and had no complaints. Past medical history: Narcotic addiction since his early teens, hepatitis C, depression, alcohol-induced pancreatitis approximately 3 years ago, pneumonia at the age of 4. C. difficile in August 2017. Rhabdomyolysis and sepsis in 2016 secondary to heroin overdose. Heroin overdose March 2017. Methamphetamine overdose in May 2015. Objective Vital signs: Temperature 97.7 F 10/19/17 04:00 Pulse Rate 72 10/19/17 06:30 Respiratory Rate 9 L 10/19/17 06:30 Blood Pressure 102/61 10/19/17 06:30 Pulse Oximetry 97 10/19/17 06:30 Height/Weight/BMI: Height 1.78 m Weight 75 kg Body Mass Index 23.7 Hospital Course This is a general summary of the patient's hospital course. For more details refer to the complete medical record. Hospital course: The patient was admitted last night after he was found unresponsive at home with a heroin overdose. He was given 1 mg of Narcan by EMS and then here in the hospital has received 4 doses of 0.4 mg Narcan. The last one was at approximately 1 AM today. Currently, he is feeling well and is alert and oriented. He is eating and drinking well and is up walking without difficulty. He states he did not intentionally overdose. The patient was seen by our community mental health social worker/case liner and the patient is currently going to outpatient drug rehabilitation with tay and srinivasan. He is planning on continuing with his current drug rehabilitation plans but will try to attend a more intensive outpatient treatment. The patient was also seen by our psychiatrist, Dr. Mattson. She did evaluate the patient and felt he was stable regarding his depression and could be discharged with plans for follow-up with plan to drug rehabilitation. He is also to continue to follow with his behavioral health nurse practitioner [facility]. He will be discharged today in stable condition. He will remain on his usual home medications. [facility]. He is to keep his follow-up with his behavioral health [facility]. He plans to go to Narcotics Anonymous meeting today and follow-up with his drug rehabilitation counselor today. He was also in contact with his customs and immigration officer and has an appointment in 1 week. We did discuss that he nearly with this overdose, similar to his previous overdoses. He does understand that if he uses heroin again it could cause another overdose and possible . He states that he does understand this. His counts today was present and stated she did understand this as well. The patient should avoid heroin and all other narcotics and illegal drugs. We'll dismiss to home today with his fiance in stable condition. Discharge Plan - Discharge Disposition Discharge Date: 10/19/17 Disposition: 01 Discharged Home, Self-Care *Condition: Stable Reason For Visit (Visit label in EMR): unintentional heroin overdose - Discharge Medications *Discharge Medications: Continue BuPROPion XL [Wellbutrin Xl] 300 mg PO DAILY Mirtazapine [Remeron] 15 mg PO HS - Discharge Packet/Instructions *Diet: Diet as tolerated *Activity: Activity as tolerated, no driving *Pain Management/Treatment: Tylenol as needed *Wound Care: Not applicable Additional Instructions: Follow-up with your drug counselor through [facility]. Avoid heroin and all narcoticsillegal drugs. Keep your follow-up appointment with your behavioral health nurse practitioner *Expected Signs/Symptoms: Mild fatigue *Notify Physician if: Notify your physician if you have shortness of breath, leg pain, worsening symptoms of depression or anxiety or any other concerning symptoms *During Business Hours Contact: Call [facility] *After Business Hours Contact: Call [phone] to page your doctor *Pending Lab/Results: No Pending Lab - Referrals/Follow Up *Referrals/Follow Up: Doris Kaye APRN [Family Provider] - 1 Week - Patient Handouts Physician Narrative - Narrative Attestation Narrative: Date: 10/19/17 Time: 8331
[2017-10-19 12:46] VITALS: BP 100/80; PULSE 66; RESP 13; TEMP 98.7; O2SAT 98
--- NOTE | 2017-10-19 14:49 | 24 Hour Neuropsychiatic Eval ---
Date of Admission: 10/18/17 22:30 Chief complaint: s/p overdose History of Present Illness: Patient is a 31-year-old male who [place] [facility] [place]/p unintentional OD on Heroin. Psychiatry was consulted for safety evaluation and recommendations. Patient has had multiple recent ODs on Heroin, which is obviously a concern. Significant other Heaven is at his bedside. He states last night, he missed a vein and then gave himself another injection of heroin because he could not feel the effects of the first injection. He actually uses much less frequently now than he has in the past (as he has been getting treatment) but relapsed. So this would make sense that he has much less tolerance to the dose that he used in the past. He denies that this was a suicide attempt or that he is currently feeling suicidal. His S.O. also agrees that he is safe in that regard. Discussed with them and ANGELA Rockwell patient's plan for outpatient care which is quite extensive: - Staying with [facility] 21/05 - Has a peer mentor for substance abuse and attends OP tx 2x/week and individual counseling 1x/wk - Peer mentor planning on looking into possibility of IOP program - Will refer him to Dr. Lange's office for possible suboxone tx, which I believe would be quite beneficial at this point Patient reports having unresolved grief from brother's 10 years ago but otherwise psych ROS negative; S.O. agrees with this. [facility] Patient Stated Medical History Pneumonia Yes: HX OF ASPIRATION PNEUMONIA Other Infectious Yes: positive for hep c Depression Yes Substance Use Disorder Yes: HEROIN Medical History Updates: Heroin abuse. Hep C. Depression Surgical History: * [place] Teeth - Social History Smoking status: Current every day smoker Review of Systems All systems: reviewed and no additional remarkable complaints except as stated - Psychiatric Psychiatric: Present: other (unresolved grief over brother's ) Mental Status Exam Vitals: Last Vital Signs Temp 98.7 F 10/19/17 08:00 Pulse 66 10/19/17 12:00 Resp 13 10/19/17 12:00 BP 100/80 10/19/17 12:00 Pulse Ox 98 10/19/17 12:15 Height: 1.78 m Weight: 75 kg - Mental Status Exam Muscle Strength/Tone: Normal Dressing: Casual Grooming: Fair Attitude: Cooperative Motor Activity: Normal Eye Contact: Good Speech: Normal Volume: Normal Rhythm: Appropriate Rhythm Sensory: Alert Orientation: Oriented X4 Mood: Neutral Affect: Relaxed Rate of Thoughts: Appropriate Rate Thought Organization: Organized Associations: Intact Abstract Reasoning: Intact, able to abstract Thought Content: Normal Perception/Psychotic: Perception Normal Language: Naming Intact Fund of Knowledge: Appropriate Memory: Grossly Intact Suicidal Ideation: Denies Homicidal Ideation: Denies Insight: Fair Judgement: Fair (other than heroin addiction) Impulse Control: Good - Laboratory Result Diagrams: 10/18/17 18:36 10/19/17 04:19 Laboratory Results - last 24 hr 10/19/17 04:19 Turbidity < 20 Sodium 141 Potassium 4.2 Chloride 107 Carbon Dioxide 27 Anion Gap 7 BUN 13.0 Creatinine 0.8 D GFR Calculation 114 BUN/Creatinine Ratio 16 Glucose 97 Calculated Osmolality 271 Calcium 8.3 L Icterus Index < 2 Specimen Hemolysis < 15 Assessment and Plan (1) Opioid use disorder, severe, dependence Status: Acute Though I believe inpatient treatment would be beneficial for patient, he refuses as he has a temp job currently and does not feel he will be able to get another job if he loses this one. Agreeable to continuing outpatient treatment plan, continuing services and looking into IOP through [facility] (currently working with him) and possibly suboxone treatment. Significant other also agrees he is not a danger to self and will be with patient all times at home.
== END 2017-10-19 12:35 | disposition home or self-care (01) ==
LOC: ED 17:33 → INTOOBSV 22:30 → CCU 22:30 → SUATTDRO 22:30 → CCU 23:05
PROVIDERS: ADMIT Hospitalist; ATTEND Internal Medicine